=== PATIENT | female | born 1945 | race Caucasian/White ===

== ENCOUNTER → 2016-08-08 | Outpatient (CLI) | payer MEDICARE, OTHER ==
--- NOTE | 2016-08-08 13:26 | CT ---
EXAMINATION TYPE: CT sinus wo con DATE OF EXAM: 08/08/2016 12:17 PM COMPARISON: CT sinus without contrast HISTORY: Patient having headache in frontal sinus, behind eyes, and down around jaw CT DLP: 550.8 mGycm Automated exposure control for dose reduction was used. FINDINGS: Helical acquisition through the sinuses. Lobular soft tissue density present within the maxillary antrum on the left may represent mucus reten tion cyst or polyp. Minimal inflammatory change present within the ethmoid air cells. Sphenoid sinus also shows inflammatory change, minimal mucosal thickening present in the right maxillary sinus. The ostiomeatal units are patent. Rico cell suspected bilaterally, esther bullosa present on the right. The orbits show symmetric appearance. Mildly deviated nasal septum is present. IMPRESSION: FINDINGS COMPATIBLE WITH CHRONIC SINUSITIS, ADDITIONAL FINDINGS ABOVE
--- NOTE | 2016-08-08 13:30 | CT ---
EXAMINATION TYPE: CT brain wo con DATE OF EXAM: 08/08/2016 12:17 PM COMPARISON: CT sinus same date, previous head CT June HISTORY: Patient having headache in frontal sinus, behind eyes, and down around jaw CT DLP: 968.8 mGycm Automated exposure control for dose reduction was used. FINDINGS: There is abnormal asymmetric attenuation involving the left temporal lobe as compared to the right, t here may be some local edema present, difficult to exclude an underlying mass, overlying sulci are ef faced. There is no hemorrhage or hydrocephalus. Periventricular white matter low-attenuation likely d ue to chronic small vessel ischemia. There is age-related atrophy. Cerebral vascular calcifications a re present. Inflammatory change noted within the sinus. The orbits show symmetric appearance. There i s partial empty sella present. IMPRESSION: Recommend further evaluation for temporal lobe anomaly on the left, pre and postcontrast brain MRI mccormack ggested. A Yellow message has been communicated to eSth Solis DO via the [employer] system on 08/08/2016 1:26 PM, Message ID [id number].
== END | disposition home or self-care (01) ==
LOC: RADCTMAIN 11:48
PROVIDERS: ATTEND Family Medicine
DX: J32.9 Chronic sinusitis, unspecified (principal); R51 Headache
CPT/HCPCS: 70450; 70486

== ENCOUNTER 2016-08-12 11:04 | Inpatient (IN) | payer MEDICARE, OTHER ==
[2016-08-12] MEDS ORDERED: DEXAMETHASONE SOD PHOSPHATE 10 MG/ML 1 ML VIAL IV STA (11:33)
[2016-08-12 12:00] LABS: Basophils % (A) 0 %; CH 30.2; CHCM 32.4; Eosinophils # (A) 0.2 k/uL (0-0.7); Eosinophils % (A) 2 %; HCT 41.1 % (34.0-46.0); Luc # (Auto) 0.18; Luc % (Auto) 2; Lymphocytes % (A) 18 %; MCH 29.6 pg (25.0-35.0); MCHC 31.7 g/dL (31.0-37.0); MCV 93.4 fL (80.0-100.0); Mean Platelet Volume 7.5; Monocytes # (A) 0.5 k/uL (0-1.0); Monocytes % (A) 4 %; Neutrophils % (A) 73 %; RDW 14.6 % (11.5-15.5); WBC 10.9 k/uL (3.8-10.6); WBC (Perox) 10.65
[2016-08-12 12:07] LABS: INR 2.5 (<1.1); Prothrombin Time 24.4 sec (9.0-12.0)
[2016-08-12 12:16] LABS: C Reactive Protein 26.2 mg/L (<10.0); Calcium 10.2 mg/dL (8.4-10.2); Potassium 5.2 mmol/L (3.5-5.1)
[2016-08-12] MEDS ORDERED: AMPICILLIN-SULBACTAM 3 GM in SODIUM CHLORIDE 0.9% 100 ML IVPB STA (13:05)
--- NOTE | 2016-08-12 13:05 | ED ---
General Adult HPI - General Chief complaint: Neuro Symptoms/Deficit Stated complaint: facial numbness Time Seen by Provider: 08/12/16 11:19 Source: patient, family, RN notes reviewed, old records reviewed Mode of arrival: wheelchair Limitations: no limitations - History of Present Illness Initial comments: 71-year-old female with history of chronic sinus infection presenting for left facial pain and numbness. Patient states she's had symptoms going on for several weeks. She states she's been on several rounds of antibiotics which have mildly improved symptoms but symptoms persist. She states over the past week she's developed a numbness sensation on the left side of her face and into her left lips. She states a history of breast cancer which was treated with mastectomy on the right side back in March 2016. She did not require radiation or chemo. She denies any chest pain or shortness of breath. She denies any throat swelling. She denies any nausea or vomiting. She states she had a CT brain scan done a few days ago which showed an abnormality and was scheduled for follow-up MRI on 08/15/2016. - Related Data Home Medications Medication Instructions Recorded Confirmed Furosemide [Lasix] 40 mg PO DAILY PRN 09/06/13 08/12/16 Insulin Glargine [Lantus] 100 units SQ QAM 09/06/13 08/12/16 Ramipril 10 mg PO DAILY 09/06/13 08/12/16 Verapamil HCl [Verelan] 360 mg PO DAILY@1600 09/06/13 08/12/16 Multivitamins, Thera [Multivitamin 1 tab PO DAILY 05/02/14 08/12/16 (formulary)] Fenofibrate 160 mg PO DAILY@1600 03/01/16 08/12/16 Warfarin [Coumadin] 2.5 mg PO DAILY 03/26/16 08/12/16 Digoxin 250 mcg PO DAILY 04/02/16 08/12/16 Albuterol Nebulized [Ventolin 2.5 mg INHALATION RT-BID PRN 08/12/16 08/12/16 Nebulized] Insulin Detemir [Levemir] See Protocol SQ DAILY 08/12/16 08/12/16 Pseudoephedrine HCl [Sudafed] 60 mg PO Q4HR PRN 08/12/16 08/12/16 Allergies Allergy/AdvReac Type Severity Reaction Status Date / Time iodine Allergy Swelling Verified 08/12/16 12:26 shellfish derived Allergy Swelling Verified 08/12/16 12:26 TAPE AdvReac Itching Uncoded 08/12/16 12:26 Review of Systems ROS Statement: Those systems with pertinent positive or pertinent negative responses have been documented in the HPI. ROS Other: All systems not noted in ROS Statement are negative. Past Medical History Past Medical History: Atrial Fibrillation, Cancer, Heart Failure, COPD, Diabetes Mellitus, Hypertension, Osteoarthritis (OA), Sleep Apnea/CPAP/BIPAP Additional Past Medical History / Comment(s): ARTHRITIS PAIN KNEES & SHOULDERS. , SLEEP APNEA (DOES NOT USE C-PAP), DIVERTICULITIS., DENIES EDEMA AT THIS TIME. , NEW DIAGNOSIS OF BREAST CANCER., SINUS DRAINAGE. History of Any Multi-Drug Resistant Organisms: None Reported Past Surgical History: Breast Surgery, Section, Cholecystectomy Additional Past Surgical History / Comment(s): 04/02/16 Modified R breast radical mastectomy with sentinel lymph node bx. Other surgical hx: Cataract surgery, tubal ligation, colonoscopy , x3., Right Breast Bx. Past Anesthesia/Blood Transfusion Reactions: No Reported Reaction Past Psychological History: Anxiety, Depression Additional Psychological History / Comment(s): Pt has a tamika who resides with her. She gets around in a power chair. She does not drive, she takes the bus to [employer]. Smoking Status: Never smoker Past Alcohol Use History: None Reported Past Drug Use History: None Reported - Past Family History Mother Family Medical History: Congestive Heart Failure (CHF), Diabetes Mellitus Father Family Medical History: Vascular Disorder Additional Family Medical History / Comment(s): passed with aortic rupture at 73yrs old Sister(s) Family Medical History: Cancer Additional Family Medical History / Comment(s): SISTER AND SISTERS DAUGHTER- CANCER Brother(s) Family Medical History: Diabetes Mellitus Son(s) Family Medical History: No Reported History Daughter(s) Family Medical History: No Reported History General Exam - General Exam Comments Initial Comments: General: Awake and Alert. No acute distress. Does not appear acutely ill. Obese. Eyes: JULIA, EOM intact. No nystagmus. No scleral icterus. HENT: Atraumatic, normocephalic. Mucous membranes moist. Trachea midline. Neck: The neck is supple, there is no tenderness or JVD. Cardiovascular: Regular rate and rhythm. No murmur, rub, or gallop is appreciated. Distal pulses intact. Respiratory: Lungs are clear to auscultation bilaterally. No wheezes, rales, rhonchi. No respiratory distress. Gastrointestinal: Soft, Nontender. No rebound or guarding. Non-distended. No masses or organomegaly noted. No CVA tenderness. Musculoskeletal: No tenderness. Normal ROM. No gross deformity. No strength deficits. Neurological: A&Ox3. CN II-XII grossly intact, There are no obvious motor deficits. Subjective left facial sensory changes compared to right the V2 and V3 distribution. Coordination appears grossly intact. Speech is normal. Skin: Skin is warm and dry and no rashes or lesions are noted. Psychiatric: Cooperative, appropriate mood & affect, normal judgment. Limitations: no limitations Course Vital Signs 08/12/16 08/12/16 08/12/16 11:11 13:52 14:51 Temperature 97.7 F 97.6 F Pulse Rate 80 81 78 Respiratory 16 16 18 Rate Blood Pressure 133/72 114/60 121/68 O2 Sat by Pulse 95 95 95 Oximetry Medical Decision Making - Medical Decision Making 71-year-old female presenting for left sided facial numbness and pain. Recent CT Sinus imaging was reviewed with evidence of chronic sinusitis. Recent CT Brain with evidence of nonspecific left temporal changes concerning for possible mass with localized edema. Discussed these results with patient. Given the fact that there may be edema associated with this mass patient was given Decadron. Plan to start IV antibiotics for chronic sinus infection. Recommend patient be admitted for urgent MRI of her brain and Neurology evaluation. Consideration for CVT vs brain mass vs temporal arteritis. Lower suspicion of CVT given therapeutic anticoagulation. Pt declines pain medication , states she only takes tylenol for pain. Labs with mild leukocytosis. BMP with evidence of ROSETTE and borderline hyperkalemia, likely due to hypovolemia, IVF given. ESR and CRP elevated. INR therapeutic. I called and spoke with MRI, will be able to get patient in for MRI at 4:15 today. I spoke with Dr. Banegas, updated on patient situation. - Lab Data Result diagrams: 08/12/16 11:20 08/12/16 11:20 Lab Results 08/12/16 08/12/16 08/12/16 Range/Units 11:20 11:20 11:20 WBC 10.9 H (3.8-10.6) k/uL RBC 4.40 (3.80-5.40) m/uL Hgb 13.0 (11.4-16.0) gm/dL Hct 41.1 (34.0-46.0) % MCV 93.4 (80.0-100.0) fL MCH 29.6 (25.0-35.0) pg MCHC 31.7 (31.0-37.0) g/dL RDW 14.6 (11.5-15.5) % Plt Count 262 (150-450) k/uL Neutrophils % 73 % Lymphocytes % 18 % Monocytes % 4 % Eosinophils % 2 % Basophils % 0 % Neutrophils # 8.0 H (1.3-7.7) k/uL Lymphocytes # 2.0 (1.0-4.8) k/uL Monocytes # 0.5 (0-1.0) k/uL Eosinophils # 0.2 (0-0.7) k/uL Basophils # 0.0 (0-0.2) k/uL ESR 33 H (0-20) mm/hr PT 24.4 H (9.0-12.0) sec INR 2.5 (<1.1) Sodium 141 (137-145) mmol/L Potassium 5.2 H (3.5-5.1) mmol/L Chloride 105 (98-107) mmol/L Carbon Dioxide 25 (22-30) mmol/L Anion Gap 11 mmol/L BUN 41 H (7-17) mg/dL Creatinine 1.20 H (0.52-1.04) mg/dL Est GFR (MDRD) Af Amer 53 (>60 ml/min/1.73 sqM) Est GFR (MDRD) Non-Af 44 (>60 ml/min/1.73 sqM) Glucose 141 H (74-99) mg/dL Calcium 10.2 (8.4-10.2) mg/dL C-Reactive Protein 26.2 H (<10.0) mg/L - Radiology Data Radiology results: report reviewed Disposition Clinical Impression: Sinusitis, Facial paresthesia, Abnormal CT of the head, Diabetes, Afib, ROSETTE ( acute kidney injury), Anticoagulated on Coumadin Disposition: ADMITTED IP TO THIS [facility] Condition: Stable Decision to Admit Reason: Admit from [facility]
[2016-08-12 13:11] LABS: Erythrocyte Sedimentation Rate 33 mm/hr (0-20)
[2016-08-12] MEDS ORDERED: NALOXONE 0.4 MG/ML 1 ML VIAL IV PRN (13:56)
[2016-08-12] MEDS ORDERED: ACETAMINOPHEN TAB 325 MG TAB PO PRN (13:56)
[2016-08-12] MEDS ORDERED: ONDANSETRON 4 MG/2 ML VIAL IVP PRN (13:56)
[2016-08-12] MEDS ORDERED: SODIUM CHLORIDE 0.9% 500 ML IV STA (14:05)
[2016-08-12 17:40] LABS: Glucose,Whole Blood 185 mg/dL (75-99)
[2016-08-12] MEDS ORDERED: FUROSEMIDE 40 MG TAB PO PRN (17:40)
[2016-08-12] MEDS ORDERED: ALBUTEROL NEBULIZED 2.5 MG/3 ML INHALATION PRN (17:40)
[2016-08-12] MEDS ORDERED: PSEUDOEPHEDRINE 30 MG TAB PO PRN (17:40)
--- NOTE | 2016-08-12 17:54 | P.HPIM ---
History of Present Illness H&P Date: 08/12/16 Chief Complaint: Left sided facial numbness with numbness of the lip and cerebral 71-year-old morbidly obese female one of Dr. 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 Patient apparently developed to have sinusitis over 3 months ago was treated with several courses of oral antibiotics but continued to have complaint of numbness not feeling well a pressure discomfort and facial area mostly in the left side. Patient was referred for CAT scan of the sinus and the brain back in August 08 finding surprisingly came back with slight Scurry of the left temporal area consistent with mild cerebral edema of any clear etiology with no finding of spot of metastasis. Patient was referred to demurs department by Dr. Solis 1 calling him today and complaining about the numbness in her face and lip area. Patient was seen and evaluated no other neuro finding or deficit was found with her current complaint patient was giving Decadron will be admitted to the hospital will consult neurology and make an arrangement for an MRI of the brain with gallium. Review of Systems Constitutional: Reports fatigue, Reports fever, Reports lethargy, Reports weakness, Reports weight gain, Denies as per HPI, Denies anorexia, Denies chills , Denies chronic headaches, Denies chronic pain, Denies daytime sleepiness, Denies malaise, Denies night sweats, Denies poor appetite, Denies sweats, Denies weight loss Eyes: bilateral as per HPI Ears: bilateral: decreased hearing Ears, nose, mouth and throat: Reports ant. neck pain, Reports dental pain, Reports nasal congestion, Reports nasal discharge, Reports nose pain, Reports sinus pain, Reports sinus pressure, Reports swelling in mouth, Reports swelling in throat, Reports sore throat, Denies as per HPI, Denies bleeding gums, Denies dysphagia, Denies epistaxis, Denies headache, Denies hoarseness, Denies mouth pain, Denies neck fullness/pressure, Denies neck lump, Denies odynophagia, Denies post-nasal drip, Denies vertigo, Denies voice changes Cardiovascular: Reports decreased exercise tolerance, Reports edema, Reports high blood pressure, Reports irregular heart beat, Reports leg edema, Reports rapid heart beat, Denies as per HPI, Denies chest pain, Denies claudication, Denies dyspnea on exertion, Denies lightheadedness, Denies orthopnea, Denies palpitations, Denies paroxysmal nocturnal dyspnea, Denies phlebitis, Denies shortness of breath, Denies syncope Respiratory: Reports congestion, Reports cough, Reports dyspnea, Reports home oxygen, Reports pain, Reports wheezing, Denies as per HPI, Denies cough with sputum, Denies excessive sputum, Denies hemoptysis, Denies pain on inspiration, Denies pleurisy, Denies respiratory infections, Denies sleep apnea, Denies snoring Gastrointestinal: Reports bloating, Reports dyspepsia, Reports excessive gas, Reports indigestion, Reports nausea, Denies as per HPI, Denies abdominal pain, Denies belching, Denies BRBPR, Denies change in bowel habits, Denies coffee ground emesis, Denies constipation, Denies diarrhea, Denies early satiety, Denies heartburn, Denies hematemesis, Denies hematochezia, Denies jaundice, Denies lactose intolerance, Denies loss of appetite, Denies melena, Denies vomiting Genitourinary: Reports urge incontinence, Denies as per HPI, Denies abnormal vaginal bleeding, Denies decreased libido, Denies difficulty conceiving, Denies difficulty voiding, Denies dysmenorrhea, Denies dyspareunia, Denies dysuria, Denies flank pain, Denies genital sores, Denies hematuria, Denies hot flashes, Denies incomplete emptying, Denies kidney stones, Denies menorrhagia, Denies mixed incontinence, Denies nocturia, Denies pelvic pain, Denies post void dribbling, Denies , Denies prolapse symptoms, Denies stress incontinence , Denies urgency, Denies urinary frequency, Denies vaginal discharge, Denies vaginal dryness, Denies vaginal itching, Denies vaginal odor Musculoskeletal: Reports loss of height, Reports low back pain, Reports myalgias , Reports neck pain, Reports neck stiffness, Denies as per HPI, Denies arm numbness/tingling, Denies atrophy, Denies fractures, Denies frequent falls, Denies gait dysfunction, Denies hot joints, Denies leg numbness/tingling, Denies limitation of motion, Denies morning stiffness, Denies muscle cramps, Denies muscle weakness, Denies prior amputations, Denies redness of joints, Denies shooting arm pain, Denies shooting leg pain Musculoskeletal: bilateral: ankle pain Integumentary: Reports rash, Reports sores, Denies as per HPI, Denies acne, Denies boils, Denies brittle nails, Denies change in hair/nails, Denies color changes, Denies darkening of skin, Denies depigmentation, Denies dryness, Denies foot/leg ulcers, Denies growths, Denies hirsutism, Denies lesions, Denies onychomycosis, Denies pruritus, Denies striae, Denies unusual bruising, Denies wounds Neurological: Reports ataxia, Reports burning pain, Reports change in speech, Reports confusion, Reports double vision, Reports gait dysfunction, Reports memory loss, Reports spasticity, Reports tingling, Reports weakness, Denies as per HPI, Denies balance difficulties, Denies change in mentation, Denies change in smell/taste, Denies convulsions, Denies head injury, Denies headaches, Denies hearing difficulties, Denies lack of coordination, Denies loss of vision , Denies migraines, Denies motor disturbance, Denies numbness, Denies paralysis , Denies paresthesias, Denies seizures, Denies sensory deficit, Denies syncope, Denies tic, Denies transient paralysis, Denies tremors, Denies vertigo, Denies visual changes Psychiatric: Reports anhedonia, Reports anxiety, Reports anxiety attacks, Reports depression, Reports difficulty concentrating, Reports memory loss, Reports mood swings, Denies as per HPI, Denies change in appetite, Denies change in libido, Denies change in sleep habits, Denies confusion, Denies disorientation, Denies hallucinations, Denies hopelessness, Denies hypersomnia, Denies insomnia, Denies irritability, Denies paranoia, Denies sadness/ tearfulness, Denies sleep disturbances, Denies suicidal ideation Endocrine: Reports cold intolerance, Reports deepening of the voice, Reports excessive thirst, Reports fatigue, Denies as per HPI, Denies excessive sweating , Denies flushing, Denies heat intolerance, Denies high blood sugars, Denies increase in ring/shoe/hat size, Denies low blood sugars, Denies nocturia, Denies palpitations, Denies polydipsia, Denies polyphagia, Denies polyuria, Denies proptosis, Denies recent glucocorticoid use, Denies thyroid mass, Denies weight change Hematologic/Lymphatic: Reports easy bruising, Denies as per HPI, Denies easy bleeding, Denies lymphadenopathy, Denies lymphedema, Denies thrombophilia Allergic/Immunologic: Reports allergic rhinitis, Denies as per HPI, Denies anaphylaxis, Denies angioedema, Denies gluten intolerance, Denies persistent infections, Denies seasonal allergies, Denies urticaria, Denies wheezing Past Medical History Past Medical History: Atrial Fibrillation, Cancer, Heart Failure, COPD, Diabetes Mellitus, Hypertension, Osteoarthritis (OA), Sleep Apnea/CPAP/BIPAP Additional Past Medical History / Comment(s): ARTHRITIS PAIN KNEES & SHOULDERS. , SLEEP APNEA (DOES NOT USE C-PAP), DIVERTICULITIS., DENIES EDEMA AT THIS TIME. , NEW DIAGNOSIS OF BREAST CANCER., SINUS DRAINAGE. History of Any Multi-Drug Resistant Organisms: None Reported Past Surgical History: Breast Surgery, Section, Cholecystectomy Additional Past Surgical History / Comment(s): 04/02/16 Modified R breast radical mastectomy with sentinel lymph node bx. Other surgical hx: Cataract surgery, tubal ligation, colonoscopy , x3., Right Breast Bx. Past Anesthesia/Blood Transfusion Reactions: No Reported Reaction Past Psychological History: Anxiety, Depression Additional Psychological History / Comment(s): Pt has a tamika who resides with her. She gets around in a power chair. She does not drive, she takes the bus to [employer]. Smoking Status: Never smoker Past Alcohol Use History: None Reported Past Drug Use History: None Reported - Past Family History Mother Family Medical History: Congestive Heart Failure (CHF), Diabetes Mellitus Father Family Medical History: Vascular Disorder Additional Family Medical History / Comment(s): passed with aortic rupture at 73yrs old Sister(s) Family Medical History: Cancer Additional Family Medical History / Comment(s): SISTER AND SISTERS DAUGHTER- CANCER Brother(s) Family Medical History: Diabetes Mellitus Son(s) Family Medical History: No Reported History Daughter(s) Family Medical History: No Reported History Medications and Allergies Home Medications Medication Instructions Recorded Confirmed Type Furosemide [Lasix] 40 mg PO DAILY PRN 09/06/13 08/12/16 History Insulin Glargine [Lantus] 100 units SQ QAM 09/06/13 08/12/16 History Ramipril 10 mg PO DAILY 09/06/13 08/12/16 History Verapamil HCl [Verelan] 360 mg PO DAILY@1600 09/06/13 08/12/16 History Multivitamins, Thera [Multivitamin 1 tab PO DAILY 05/02/14 08/12/16 History (formulary)] Fenofibrate 160 mg PO DAILY@1600 03/01/16 08/12/16 History Warfarin [Coumadin] 2.5 mg PO DAILY 03/26/16 08/12/16 History Digoxin 250 mcg PO DAILY 04/02/16 08/12/16 History Albuterol Nebulized [Ventolin 2.5 mg INHALATION RT-BID PRN 08/12/16 08/12/16 History Nebulized] Insulin Detemir [Levemir] See Protocol SQ DAILY 08/12/16 08/12/16 History Pseudoephedrine HCl [Sudafed] 60 mg PO Q4HR PRN 08/12/16 08/12/16 History Allergies Allergy/AdvReac Type Severity Reaction Status Date / Time iodine Allergy Swelling Verified 08/12/16 12:26 shellfish derived Allergy Swelling Verified 08/12/16 12:26 TAPE AdvReac Itching Uncoded 08/12/16 12:26 Physical Exam Vitals: Vital Signs Temp Pulse Pulse Resp BP BP Pulse Ox 08/12/16 15:34 97.4 F L 83 16 128/77 93 L 08/12/16 14:51 97.6 F 78 18 121/68 95 - Constitutional General appearance: no average body habitus, cooperative, no disheveled, no mild distress, morbidly obese, no acute distress, no obese, no severe distress, no thin - EENT Eyes: abnormal pupil, no anicteric sclerae, no disc margins sharp, no edentulous , no EOMI, no PERRLA, no fundus normal, no photophobia, no dentition normal, no poor dentition, no ptosis, no scleral icterus, normal appearance ENT: no hard of hearing, no hearing grossly normal, no NA/AT, normal oropharynx , no other, pharyngeal erythema, no thrush, no tonsillar exudates, no tonsillar swelling Ears: bilateral: normal, bulging - Neck Neck: no lymphadenopathy, normal ROM, no other, no rigidity, no stridor, no thyromegaly Carotids: bilateral: upstroke normal, upstroke delayed Thyroid: bilateral: normal size, enlarged - Respiratory Respiratory: right: rales, bilateral: diminished, dullness - Cardiovascular Rhythm: regular Heart sounds: normal: S1, S2 Abnormal Heart Sounds: systolic murmur, S3 Gallop - Gastrointestinal General gastrointestinal: no absent bowel sounds, decreased bowel sounds, no distended, no hepatomegaly, no hyperactive bowel sounds, no normal bowel sounds , no organomegaly, no rigid, no scaphoid, soft, no splenomegaly, no tenderness, no umbilical hernia, no ventral hernia - Integumentary Integumentary: no calor, no cellulitis, no cyanotic, no decreased turgor, no flushed, no jaundiced, no normal, no normal turgor, pale, rash, no ulcer - Neurologic Patient is alert and oriented 3, and nerve to 12 intact slight numbness in the left side of her cheek area and the nose along with her upper lip only. Strength and motor function are equally normal in both side no abnormal gait or balance. Neurologic: CNII-XII intact - Musculoskeletal Musculoskeletal: gait normal, generalized weakness, strength equal bilaterally, no right sided weakness, no left sided weakness - Psychiatric Psychiatric: A&O x's 3, appropriate affect, no intact judgment & insight Results CBC & Chem 7: 08/12/16 11:20 08/12/16 11:20 Labs: Abnormal Lab Results - Last 24 Hours (Table) 08/12/16 Range/Units 17:24 POC Glucose (mg/dL) 185 H (75-99) mg/dL Thrombosis Risk Factor Assmnt - DVT/VTE Prophylaxis DVT/VTE Prophylaxis: Pharmacologic Prophylaxis ordered, Mechanical Prophylaxis ordered Assessment and Plan Plan: 1 possible CVA/TIA: With patient's current symptoms patient be hospitalized consult neurology CAT scan of the brain was performed if possible MRI of the brain will be order further testing based on neurology recommendation. 2 possible metastasis to the left temporal area with vague finding on the CAT scan along with mild cerebral edema: Patient was started on Decadron we'll consult neurology and refer for MRI of the brain at this point. 3 chronic sinusitis with abnormal finding on a CAT scan of the sinus: Patient be referred to ENT if finding of the MRI of the brain does not reflect any cerebral edema patient entire finding most likely consistent with a chronic sinusitis has not improved with medical management might require surgery. 4 breast-cancer: Post modified right-sided mastectomy has been seen oncology. 5 diabetes: Patient will be continue on insulin along with sliding scales coverage. 6 hypertension: Has been on all paced 10 mg daily. 7 A. fib with well controlled pulse rate: Patient is still on warfarin, and digoxin PT/INR be done daily. 8 hyperlipidemia: Continue patient on fenofibrate for now. 9 COPD: Continue updraft treatment and if needed oxygen to keep her pulse ox above 90%. 10 GI prophylaxis: Patient will be on Pepcid 20 mg daily. 11 DVT prophylaxis: Remain on anticoagulation with therapeutic INR. CODE STATUS: Full code. Expectation from's admission: Patient in the hospital for 1-2 nights.
[2016-08-12 18:32] VITALS: BMI 55.4
[2016-08-12] MEDS: SODIUM CHLORIDE 0.9% 1,000 ML IV SCH (18:37)
[2016-08-12] MEDS: WARFARIN 2.5 MG TAB PO SCH (20:10)
--- NOTE | 2016-08-12 20:24 | CONS ---
DATE OF CONSULTATION: 08/12/2016 CHIEF COMPLAINT: Facial numbness. HISTORY OF PRESENT ILLNESS: Mrs. Nunn is a pleasant 71-year-old female who is being evaluated by the neurology service per the request of Dr. Banegas for left facial numbness. The patient states that she has been having sinus issues for the past several weeks. She treats with Dr. Solis and she has been placed on antibiotics for a prolonged period of time. She was having fullness in her left ear and pressure-type pain in the left temporal and maxillary and frontal regions. When her symptoms did not improve, a CT scan of the brain and sinuses was done. I did review her CT scan of the brain which was done on 08/08/16. It showed an abnormal asymmetric attenuation in the left temporal lobe. There was also a finding consistent with edema. The study was done without contrast. There was also periventricular white matter hypoattenuation consistent with chronic small vessel ischemic changes. The patient was contacted by Dr. Solis's office and told to go to the emergency room. The patient was started on Decadron and admitted for further workup and management. The patient does have history of breast cancer and had a mastectomy done. She states that her lymph node biopsy was negative. She does treat with Dr. Wilson for this. At the time of my evaluation, the patient is sitting at the edge of her bed and appears to be in no acute distress. She continues to complain of numbness and tingling involving her left, mostly in the perioral region. She denies any extremity numbness or weakness and denies any speech difficulties. I did review her laboratory workup, and her CBC was normal except for mild leukocytosis at 10.9. Her basic metabolic profile showed mild renal insufficiency with a BUN of 41 and creatinine of 1.2. She did have mild hyperkalemia at 5.2 and hyperglycemia at 185. Her CRP was slightly elevated at 26.2. PAST MEDICAL HISTORY: 1. Breast cancer. 2. Atrial fibrillation. 3. Chronic obstructive pulmonary disease. 4. Heart failure. 5. Diabetes. 6. Hypertension. 7. Arthritis. 8. Obstructive sleep apnea. 9. Diverticulitis. 10. History of mastectomy. 11. . 12. Cholecystectomy. 13. She also reports a history of depression and anxiety disorder. 14. The patient also reports a history of tubal ligation and cataract surgery and lymph node biopsy. SOCIAL HISTORY: She denies any tobacco, alcohol or drug use. FAMILY HISTORY: Positive for diabetes and heart failure and cancer. HOME MEDICATIONS: Reviewed in the chart. ALLERGIES: 1. IODINE. 2. TAPE. 3. SHELLFISH. REVIEW OF SYSTEMS: CONSTITUTIONAL: Positive for fatigue. EYES: Negative. ENT: As mentioned above. CARDIOVASCULAR: Positive for history of atrial fibrillation and congestive heart failure. RESPIRATORY: ( ). NEUROLOGICAL: As mentioned above. GASTROINTESTINAL: Positive for occasional heartburn. GENITOURINARY: Negative. PSYCHIATRIC: Positive for history of depression and anxiety disorder. DERMATOLOGICAL: Negative. ENDOCRINE: Positive for diabetes. MUSCULOSKELETAL: Positive for frequent joint pain. PHYSICAL EXAM: Vital signs show a temperature of 97.4, pulse 83, respiration 16, blood pressure 128/77. GENERAL APPEARANCE: The patient is a morbidly obese female who appears to be in no acute distress. HEENT: Normocephalic, atraumatic. No facial asymmetry is seen. Extraocular muscles are intact. Neck is supple with lymphadenopathy noticed on the left side. CARDIOVASCULAR: Regular rate and rhythm. ABDOMEN: Obese, nontender, nondistended. Extremities showed edema with no clubbing seen. NEUROLOGICAL EXAM: The patient is alert, aware and oriented x3. Speech and language are normal. Strength is full in all 4 extremities. Sensory exam was normal to light touch in all 4 extremities. No pronator drift is seen. No tremors are noticed. No facial asymmetry is noticed on cranial nerve testing, but she does have mild sensory deficit in the left perioral region. IMPRESSION: 1. Abnormal attentuation involving the left temporal lobe; questionable neoplastic etiology. 2. Left facial numbness. 3. History of breast cancer. 4. Renal insufficiency. 5. Diabetes. RECOMMENDATION: The patient's CT scan of the brain without contrast is concerning for neoplastic etiology. An MRI of the brain was attempted today, but this could not be completed due to the patient's body habitus. The patient will need an MRI of the brain, and I do recommend transferring the patient to a facility that has an open MRI. I will consult Oncology. The patient has been started on Decadron. Continue neuro checks. Prognosis is guarded. I will continue to follow with you. Further recommendations to follow. Thank you for allowing me to participate in the care of your patient. If you have any questions, please feel free to contact me.
[2016-08-12 21:41] LABS: Glucose,Whole Blood 247 mg/dL (75-99)
[2016-08-12] MEDS: INSULIN LISPRO (humaLOG) 300 UNIT/3 ML VIAL SQ SCH (21:46)
[2016-08-12 23:53] LABS: Hemoglobin A1C 6.6 % (4.2-6.1)
[2016-08-13 07:01] LABS: Glucose,Whole Blood 136 mg/dL (75-99)
[2016-08-13 08:37] LABS: Basophils % (A) 0 %; CH 30.4; CHCM 32.9; Eosinophils % (A) 0 %; HCT 39.8 % (34.0-46.0); HDW 2.58; Luc # (Auto) 0.12; Luc % (Auto) 1; Lymphocytes # (A) 1.7 k/uL (1.0-4.8); Lymphocytes % (A) 17 %; MCH 30.3 pg (25.0-35.0); MCHC 32.7 g/dL (31.0-37.0); MCV 92.7 fL (80.0-100.0); Mean Platelet Volume 7.3; Monocytes # (A) 0.4 k/uL (0-1.0); Monocytes % (A) 4 %; Neutrophils # (A) 7.7 k/uL (1.3-7.7); Neutrophils % (A) 77 %; RBC 4.29 m/uL (3.80-5.40); RDW 14.3 % (11.5-15.5); WBC 10.1 k/uL (3.8-10.6); WBC (Perox) 9.54
[2016-08-13] MEDS: INSULIN GLARGINE 100 UNIT/ML 10 ML VIAL SQ SCH (08:44)
[2016-08-13] MEDS: LISINOPRIL 20 MG TAB PO SCH (08:44)
[2016-08-13] MEDS: FAMOTIDINE 20 MG TAB PO SCH (08:45)
[2016-08-13] MEDS: DIGOXIN 250 MCG TAB PO SCH (08:45)
[2016-08-13] MEDS: INSULIN LISPRO (humaLOG) 300 UNIT/3 ML VIAL SQ SCH ×4 (08:48→23:05)
[2016-08-13 08:49] LABS: INR 2.4 (<1.1); Prothrombin Time 23.4 sec (9.0-12.0)
[2016-08-13 09:47] LABS: Calcium 10.4 mg/dL (8.4-10.2); Potassium 5.2 mmol/L (3.5-5.1)
[2016-08-13 11:27] LABS: Glucose,Whole Blood 150 mg/dL (75-99)
[2016-08-13] MEDS: MULTIVITAMINS, THERA 1 EACH TAB PO SCH (11:28)
[2016-08-13] MEDS ORDERED: VERAPAMIL SR 180 MG TABLET.ER PO SCH (16:00)
[2016-08-13] MEDS ORDERED: FENOFIBRATE 160 MG TAB PO SCH (16:00)
--- NOTE | 2016-08-13 17:02 | P.PN ---
Subjective Principal diagnosis: Facial numbness This is a pleasant 71-year-old male continuing to be evaluated by the neurology service for facial numbness. Been having sinus issues for several weeks and was placed on antibiotics for a prolonged period of time. She was also having fullness in her left ear and pressure/pain in the left temporal maxillary and frontal regions. A CT of the brain and sinuses showed an abnormal asymmetric attenuation of the left temporal lobe. There was also some associated edema. She does have a history of breast cancer with mastectomy. We have ordered an MRI with and without contrast to rule out a mass/metastatic lesions. Due to body habitus she will require open MRI. He denies any new symptoms since our last neurological exam. Symptoms are unchanged on Decadron Objective - Vital Signs Vital signs: Vital Signs Temp 97.7 F 08/13/16 15:00 Pulse 71 08/13/16 16:00 Resp 16 08/13/16 16:00 BP 111/55 08/13/16 15:00 Pulse Ox 95 08/13/16 15:00 Intake & Output 08/12/16 08/13/16 08/13/16 18:59 06:59 18:59 Intake Total 1180 160 Balance 1180 160 Weight 141.974 kg 138.5 kg 138.5 kg Intake: Intake, IV Titration 160 Amount Sodium Chloride 0.9% 1, 160 000 ml @ 20 mls/hr IV . Q24H [facility] Rx#:[id number] Oral 1180 Other: Voiding Method Bedside Commode Bedside Commode # Voids 2 2 - Constitutional General appearance: Present: mild distress, obese - EENT Eyes: Present: EOMI, PERRLA. Absent: abnormal pupil, ptosis ENT: Present: hearing grossly normal - Neck Neck: Present: normal ROM. Absent: rigidity - Respiratory Respiratory: negative: prolonged expiration, prolonged inspiration - Cardiovascular Rhythm: regular - Gastrointestinal General gastrointestinal: Present: soft. Absent: tenderness - Neurologic Neurologic Comment(s): Alert awake and oriented 3. Speech and language are normal. There is no facial asymmetry. There is no lateralizing weakness. There is no decreased sensation in any extremity. There is no tremors or seizure-like activity seen. Continues to have a mild perioral left sensory deficit. - Labs CBC & Chem 7: 08/13/16 07:56 08/13/16 07:56 Labs: Abnormal Lab Results - Last 24 Hours (Table) 08/12/16 08/12/16 08/13/16 Range/Units 17:24 21:40 06:53 PT (9.0-12.0) sec Potassium (3.5-5.1) mmol/L BUN (7-17) mg/dL Creatinine (0.52-1.04) mg/dL Glucose (74-99) mg/dL POC Glucose (mg/dL) 185 H 247 H 136 H (75-99) mg/dL Calcium (8.4-10.2) mg/dL 08/13/16 08/13/16 08/13/16 Range/Units 07:56 07:56 11:20 PT 23.4 H (9.0-12.0) sec Potassium 5.2 H (3.5-5.1) mmol/L BUN 41 H (7-17) mg/dL Creatinine 1.11 H (0.52-1.04) mg/dL Glucose 145 H (74-99) mg/dL POC Glucose (mg/dL) 150 H (75-99) mg/dL Calcium 10.4 H (8.4-10.2) mg/dL Assessment and Plan (1) Abnormal CT of brain Status: Acute (2) Left facial numbness Status: Acute (3) History of breast cancer Status: Chronic (4) Sinusitis Status: Chronic (5) Diabetes Status: Chronic Plan: Again her computed tomography scan was concerning for neoplastic etiology. An MRI of the brain has been ordered an open facility. This apparently will be done in outpatient setting. Oncology will continue to follow. Continue on Decadron until she is discharged. Prognosis remains guarded until characterization of this abnormal finding can be made. Otherwise she is cleared from a neurological standpoint to have her MRI done and follow-up with oncology and her primary care physician. I have performed a history and physical on the above patient. I have reviewed the above note, and agree.
[2016-08-13 17:04] LABS: Glucose,Whole Blood 137 mg/dL (75-99)
--- NOTE | 2016-08-13 18:21 | P.CONS ---
History of Present Illness - Reason for Consult Consult date: 08/13/16 breast cancer Requesting physician: Robert Maria - Chief Complaint facial numbness - History of Present Illness Ms. Nunn is a very pleasant female pt who saw Dr. Wilson as a new consult 04/16/16. Pt presented with palpable right breast in January 2016, she had mammography and right breast U/S which revealed 3.5cm suspicious mass at 5 o 'clock right breast, core biopsy positive for high grade carcinoma, triple negative, biopsy of right axillary node was negative. On 04/02/2016 she underwent right breast mastectomy and with axillary node resection, path revealed grade 3, invasive ductal carcinoma, 3.4cm, with 8/8 nodes negative, triple negative status. Her sister was positive for BRCA-1 mutation and so was she when tested. She was due to see Dr. Wilson today for follow up as she decided in Apr to opt for observation only. Pt came to the hospital due to left facial numbness and left frontal head pain, she has been treated for otitis media and sinus infection with only minor improvements in her symptoms, she denies fevers, double or blurred vision, unilateral deficits, confusion, hallucinations, nausea or vomiting. She had CT that showed left frontal swelling, she has seen Neurology and has been started on steroids. Review of Systems All systems: negative Constitutional: Reports as per HPI Past Medical History Past Medical History: Atrial Fibrillation, Cancer, Heart Failure, COPD, Diabetes Mellitus, Hypertension, Osteoarthritis (OA), Sleep Apnea/CPAP/BIPAP Additional Past Medical History / Comment(s): ARTHRITIS PAIN KNEES & SHOULDERS. , SLEEP APNEA (DOES NOT USE C-PAP), DIVERTICULITIS., DENIES EDEMA AT THIS TIME. , NEW DIAGNOSIS OF BREAST CANCER., SINUS DRAINAGE. History of Any Multi-Drug Resistant Organisms: None Reported Past Surgical History: Breast Surgery, Section, Cholecystectomy Additional Past Surgical History / Comment(s): 04/02/16 Modified R breast radical mastectomy with sentinel lymph node bx. Other surgical hx: Cataract surgery, tubal ligation, colonoscopy , x3., Right Breast Bx. Past Anesthesia/Blood Transfusion Reactions: No Reported Reaction Past Psychological History: Anxiety, Depression Additional Psychological History / Comment(s): Pt has a tamika who resides with her. She gets around in a power chair. She does not drive, she takes the bus to [employer]. Smoking Status: Never smoker Past Alcohol Use History: None Reported Past Drug Use History: None Reported - Past Family History Mother Family Medical History: Congestive Heart Failure (CHF), Diabetes Mellitus Father Family Medical History: Vascular Disorder Additional Family Medical History / Comment(s): passed with aortic rupture at 73yrs old Sister(s) Family Medical History: Cancer Additional Family Medical History / Comment(s): SISTER AND SISTERS DAUGHTER- CANCER Brother(s) Family Medical History: Diabetes Mellitus Son(s) Family Medical History: No Reported History Daughter(s) Family Medical History: No Reported History Medications and Allergies Home Medications Medication Instructions Recorded Confirmed Type Furosemide [Lasix] 40 mg PO DAILY PRN 09/06/13 08/12/16 History Insulin Glargine [Lantus] 100 units SQ QAM 09/06/13 08/12/16 History Ramipril 10 mg PO DAILY 09/06/13 08/12/16 History Verapamil HCl [Verelan] 360 mg PO DAILY@1600 09/06/13 08/12/16 History Multivitamins, Thera [Multivitamin 1 tab PO DAILY 05/02/14 08/12/16 History (formulary)] Fenofibrate 160 mg PO DAILY@1600 03/01/16 08/12/16 History Warfarin [Coumadin] 2.5 mg PO DAILY 03/26/16 08/12/16 History Digoxin 250 mcg PO DAILY 04/02/16 08/12/16 History Albuterol Nebulized [Ventolin 2.5 mg INHALATION RT-BID PRN 08/12/16 08/12/16 History Nebulized] Insulin Detemir [Levemir] See Protocol SQ DAILY 08/12/16 08/12/16 History Pseudoephedrine HCl [Sudafed] 60 mg PO Q4HR PRN 08/12/16 08/12/16 History Allergies Allergy/AdvReac Type Severity Reaction Status Date / Time iodine Allergy Swelling Verified 08/12/16 12:26 shellfish derived Allergy Swelling Verified 08/12/16 12:26 TAPE AdvReac Itching Uncoded 08/12/16 12:26 Physical Exam Vitals: Vital Signs Temp Pulse Resp BP Pulse Ox 08/13/16 16:00 71 16 08/13/16 15:00 97.7 F 71 16 111/55 95 08/13/16 08:00 61 16 08/13/16 07:00 97.7 F 61 16 147/74 92 L 08/12/16 23:00 98.5 F 66 16 119/63 95 Intake and Output 08/13/16 08/13/16 08/13/16 06:59 14:59 22:59 Intake Total 590 160 Balance 590 160 Intake: Intake, IV Titration 160 Amount Sodium Chloride 0.9% 1, 160 000 ml @ 20 mls/hr IV . Q24H [facility] Rx#:[id number] Oral 590 Other: Voiding Method Bedside Commode Bedside Commode Bedside Commode # Voids 2 2 Weight 138.5 kg 138.5 kg 138.5 kg Patient Weight 08/14/16 06:59 Weight 138.5 kg - Constitutional General appearance: cooperative, morbidly obese, no acute distress - EENT Eyes: anicteric sclerae, EOMI, normal appearance ENT: hearing grossly normal, normal oropharynx - Neck Neck: no lymphadenopathy - Respiratory Respiratory: bilateral: CTA - Cardiovascular Heart sounds: normal: S1, S2 leg Peripheral Edema: bilateral: None - Gastrointestinal General gastrointestinal: no absent bowel sounds, no decreased bowel sounds, no distended, no hepatomegaly, no hyperactive bowel sounds, normal bowel sounds, no organomegaly, no rigid, no scaphoid, soft, no splenomegaly, no tenderness, no umbilical hernia, no ventral hernia - Neurologic Neurologic: CNII-XII intact - Musculoskeletal Musculoskeletal: generalized weakness, strength equal bilaterally - Psychiatric Psychiatric: A&O x's 3, appropriate affect, intact judgment & insight Results CBC & Chem 7: 08/13/16 07:56 08/13/16 07:56 Labs: Abnormal Lab Results - Last 24 Hours (Table) 08/12/16 08/13/16 08/13/16 Range/Units 21:40 06:53 07:56 PT 23.4 H (9.0-12.0) sec Potassium (3.5-5.1) mmol/L BUN (7-17) mg/dL Creatinine (0.52-1.04) mg/dL Glucose (74-99) mg/dL POC Glucose (mg/dL) 247 H 136 H (75-99) mg/dL Calcium (8.4-10.2) mg/dL 08/13/16 08/13/16 08/13/16 Range/Units 07:56 11:20 16:52 PT (9.0-12.0) sec Potassium 5.2 H (3.5-5.1) mmol/L BUN 41 H (7-17) mg/dL Creatinine 1.11 H (0.52-1.04) mg/dL Glucose 145 H (74-99) mg/dL POC Glucose (mg/dL) 150 H 137 H (75-99) mg/dL Calcium 10.4 H (8.4-10.2) mg/dL CT Scan - head: report reviewed Assessment and Plan (1) History of breast cancer Narrative/Plan: Pt was treated with surgery and has been on follow up, due to see Dr. Wilson today. Agree with Neurology recommendation of open MRI to evaluate CT findings. Pt symptoms have not improved much despite the addition of steroids but, will continue steroids until MRI is done. Pt appears to be hemodynamically stable and can be discharged for MRI if she is evaluated and cleared by Attending and Neurology. Will plan for f/u with Dr. Wilson 1-2 days post MRI for results and plan of care. Status: Chronic
[2016-08-13] MEDS: WARFARIN 2.5 MG TAB PO SCH (18:48)
[2016-08-13] MEDS: DEXAMETHASONE 4 MG TAB PO SCH ×2 (18:50→23:04)
[2016-08-13] MEDS: SODIUM CHLORIDE 0.9% 1,000 ML IV SCH (18:51)
[2016-08-13 20:21] LABS: Glucose,Whole Blood 193 mg/dL (75-99)
[2016-08-14 07:38] LABS: Glucose,Whole Blood 178 mg/dL (75-99)
[2016-08-14 08:31] VITALS: BP 120/67; PULSE 61; RESP 18; TEMP 97.3
[2016-08-14] MEDS: INSULIN GLARGINE 100 UNIT/ML 10 ML VIAL SQ SCH (08:41)
[2016-08-14] MEDS: LISINOPRIL 20 MG TAB PO SCH (08:41)
[2016-08-14] MEDS: DEXAMETHASONE 4 MG TAB PO SCH (08:41)
[2016-08-14] MEDS: DIGOXIN 250 MCG TAB PO SCH (08:41)
[2016-08-14] MEDS: FAMOTIDINE 20 MG TAB PO SCH (08:41)
[2016-08-14] MEDS: INSULIN LISPRO (humaLOG) 300 UNIT/3 ML VIAL SQ SCH ×2 (08:42→13:58)
[2016-08-14 11:55] LABS: Glucose,Whole Blood 159 mg/dL (75-99)
--- NOTE | 2016-08-14 12:30 | P.PN ---
Subjective 71-year-old morbidly obese female one of Dr. 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 Patient apparently developed to have sinusitis over 3 months ago was treated with several courses of oral antibiotics but continued to have complaint of numbness not feeling well a pressure discomfort and facial area mostly in the left side. Patient was referred for CAT scan of the sinus and the brain back in August 08 finding surprisingly came back with slight Rap[place] of the left temporal area consistent with mild cerebral edema of any clear etiology with no finding of spot of metastasis. Patient was referred to emergency department by Dr. Solis 1 calling him today and complaining about the numbness in her face and lip area. Patient was seen and evaluated no other neuro finding or deficit was found with her current complaint patient was giving Decadron will be admitted to the hospital will consult neurology and make an arrangement for an MRI of the brain with gallium. 08/13: Patient was unable to undergo MRI due to her size. Case was discussed with Dr. Patino with recommendations for outpatient MRI in a center that will accommodate her. Metastatic disease from her breast cancer is very unlikely. Patient was given option of being transferred to another facility or doing an MRI as an outpatient. She will discuss with her family and make a decision. Her blood glucose has been elevated due to steroids. P C reactive protein was 26.2. Hemoglobin A1c 6.6.atient is currently on dexamethasone 4 mg 3 times daily. INR 2.4. Objective - Vital Signs Vital signs: Vital Signs Temp 97.7 F 08/13/16 07:00 Pulse 61 08/13/16 08:00 Resp 16 08/13/16 08:00 BP 147/74 08/13/16 07:00 Pulse Ox 92 L 08/13/16 07:00 Intake & Output 08/12/16 08/13/16 08/13/16 18:59 06:59 18:59 Intake Total 1180 160 Balance 1180 160 Weight 141.974 kg 138.5 kg 138.5 kg Intake: Intake, IV Titration 160 Amount Sodium Chloride 0.9% 1, 160 000 ml @ 20 mls/hr IV . Q24H [facility] Rx#:[id number] Oral 1180 Other: Voiding Method Bedside Commode Bedside Commode # Voids 2 - Exam General appearance: no average body habitus, cooperative, no disheveled, no mild distress, morbidly obese, no acute distress, no obese, no severe distress, no thin - EENT Eyes: abnormal pupil, no anicteric sclerae, no disc margins sharp, no edentulous , no EOMI, no PERRLA, no fundus normal, no photophobia, no dentition normal, no poor dentition, no ptosis, no scleral icterus, normal appearance ENT: no hard of hearing, no hearing grossly normal, no NA/AT, normal oropharynx , no other, pharyngeal erythema, no thrush, no tonsillar exudates, no tonsillar swelling Ears: bilateral: normal, bulging - Neck Neck: no lymphadenopathy, normal ROM, no other, no rigidity, no stridor, no thyromegaly Carotids: bilateral: upstroke normal, upstroke delayed Thyroid: bilateral: normal size, enlarged - Respiratory Respiratory: right: rales, bilateral: diminished, dullness - Cardiovascular Rhythm: regular Heart sounds: normal: S1, S2 Abnormal Heart Sounds: systolic murmur, S3 Gallop - Gastrointestinal General gastrointestinal: no absent bowel sounds, decreased bowel sounds, no distended, no hepatomegaly, no hyperactive bowel sounds, no normal bowel sounds , no organomegaly, no rigid, no scaphoid, soft, no splenomegaly, no tenderness, no umbilical hernia, no ventral hernia - Integumentary Integumentary: no calor, no cellulitis, no cyanotic, no decreased turgor, no flushed, no jaundiced, no normal, no normal turgor, pale, rash, no ulcer - Neurologic Patient is alert and oriented 3, and nerve to 12 intact slight numbness in the left side of her cheek area and the nose along with her upper lip only. Strength and motor function are equally normal in both side no abnormal gait or balance. Neurologic: CNII-XII intact - Musculoskeletal Musculoskeletal: gait normal, generalized weakness, strength equal bilaterally, no right sided weakness, no left sided weakness - Psychiatric Psychiatric: A&O x's 3, appropriate affect, no intact judgment & insight - Labs CBC & Chem 7: 08/13/16 07:56 08/13/16 07:56 Labs: Abnormal Lab Results - Last 24 Hours (Table) 05/11/2108/12/16 08/13/16 Range/Units 17:24 21:40 06:53 PT (9.0-12.0) sec Potassium (3.5-5.1) mmol/L BUN (7-17) mg/dL Creatinine (0.52-1.04) mg/dL Glucose (74-99) mg/dL POC Glucose (mg/dL) 185 H 247 H 136 H (75-99) mg/dL Calcium (8.4-10.2) mg/dL 08/13/16 08/13/16 08/13/16 Range/Units 07:56 07:56 11:20 PT 23.4 H (9.0-12.0) sec Potassium 5.2 H (3.5-5.1) mmol/L BUN 41 H (7-17) mg/dL Creatinine 1.11 H (0.52-1.04) mg/dL Glucose 145 H (74-99) mg/dL POC Glucose (mg/dL) 150 H (75-99) mg/dL Calcium 10.4 H (8.4-10.2) mg/dL Assessment and Plan Plan: 1 possible CVA/TIA: With patient's current symptoms patient be hospitalized consult neurology CAT scan of the brain was performed if possible MRI of the brain will be order further testing based on neurology recommendation. 2 possible metastasis to the left temporal area is unlikely. Continue Decadron. MRI of the brain. 3 chronic sinusitis with abnormal finding on a CAT scan of the sinus: Patient be referred to ENT if finding of the MRI of the brain does not reflect any cerebral edema patient entire finding most likely consistent with a chronic sinusitis has not improved with medical management might require surgery. 4 breast-cancer: Post modified right-sided mastectomy has been seen oncology. 5 diabetes: Patient will be continue on insulin along with sliding scales coverage. 6 hypertension: Has been on ramipril 10 mg daily. 7 A. fib with well controlled pulse rate: Patient is still on warfarin, and digoxin PT/INR be done daily. 8 hyperlipidemia: Continue patient on fenofibrate for now. 9 COPD: Continue updraft treatment and if needed oxygen to keep her pulse ox above 90%. 10 GI prophylaxis: Patient will be on Pepcid 20 mg daily. 11 DVT prophylaxis: Remain on anticoagulation with therapeutic INR. CODE STATUS: Full code. Discharge plan: Return home Impression and plan of care have been directed as dictated by the signing physician. Erin Elias nurse practitioner acting as scribe for signing physician.
--- NOTE | 2016-08-14 12:34 | P.DS ---
Providers Date of admission: 08/12/16 13:56 Expected date of discharge: 08/14/16 Attending physician: Hernando Banegas Consults: 08/12/16 17:17 Consult Physician Routine Consulting Provider: Wander Liu Consult Reason/Comments: sinus infection Do you want consulting provider notified?: Yes 08/12/16 17:22 Consult Physician Routine Consulting Provider: Robert Maria Consult Reason/Comments: temporal lobe anomally on the left Do you want consulting provider notified?: Yes 08/12/16 18:43 Consult Physician Routine Consulting Provider: Sammy Wilson Consult Reason/Comments: Patient known to you. Hx of Breast CA, now possible brain mets Do you want consulting provider notified?: Yes Primary care physician: Seth Solis [facility] Course: 71-year-old morbidly obese female one of Dr. 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 Patient apparently developed to have sinusitis over 3 months ago was treated with several courses of oral antibiotics but continued to have complaint of numbness not feeling well a pressure discomfort and facial area mostly in the left side. Patient was referred for CAT scan of the sinus and the brain back in August 08 finding surprisingly came back with slight Trinity of the left temporal area consistent with mild cerebral edema of any clear etiology with no finding of spot of metastasis. Patient was referred to emergency department by Dr. Solis 1 calling him today and complaining about the numbness in her face and lip area. Patient was seen and evaluated no other neuro finding or deficit was found with her current complaint patient was giving Decadron will be admitted to the hospital will consult neurology and make an arrangement for an MRI of the brain with gallium. 08/13: Patient was unable to undergo MRI due to her size. Case was discussed with Dr. Patino with recommendations for outpatient MRI in a center that will accommodate her. Metastatic disease from her breast cancer is very unlikely. Patient was given option of being transferred to another facility or doing an MRI as an outpatient. She will discuss with her family and make a decision. Her blood glucose has been elevated due to steroids. P C reactive protein was 26.2. Hemoglobin A1c 6.6.atient is currently on dexamethasone 4 mg 3 times daily. INR 2.4. 5/10: MRI has been scheduled as an outpatient. Patient will be discharged home on dexamethasone and while she is on that she has been instructed to take Humalog 5 units before meals and at bedtime in addition to her usual scale. Patient has been clearly instructed to not take Levemir and Lantus at the same time. Patient has no change in her symptoms. Patient will be discharged home today in stable condition. Discharge diagnoses: 1 abnormal CAT scan finding with unclear significance. 2 possible metastasis to the left temporal area is unlikely 3 chronic sinusitis with abnormal finding on a CAT scan of the sinus 4 breast-cancer: Post modified right-sided mastectomy 5 diabetes mellitus type II, insulin requiring 6 hypertension 7 chronic A. fib with well controlled pulse rate 8 hyperlipidemia 9 COPD Discharge plan: Return home Impression and plan of care have been directed as dictated by the signing physician. Erin Elias nurse practitioner acting as scribe for signing physician. Patient Condition at Discharge: Good Plan - Discharge Summary New Discharge Prescriptions: Dexamethasone [Hexadrol] 4 mg PO BID #60 tab INSULIN LISPRO (HumaLOG) [HumaLOG] 5 units SQ ACHS #1 vial Discharge Medication List Furosemide [Lasix] 40 mg PO DAILY PRN 09/06/13 [History] Ramipril 10 mg PO DAILY 09/06/13 [History] Verapamil HCl [Verelan] 360 mg PO DAILY@1600 09/06/13 [History] Multivitamins, Thera [Multivitamin (formulary)] 1 tab PO DAILY 05/02/14 [History ] Fenofibrate 160 mg PO DAILY@1600 03/01/16 [History] Warfarin [Coumadin] 2.5 mg PO DAILY 03/26/16 [History] Digoxin 250 mcg PO DAILY 04/02/16 [History] Albuterol Nebulized [Ventolin Nebulized] 2.5 mg INHALATION RT-BID PRN 08/12/16 [ History] Pseudoephedrine HCl [Sudafed] 60 mg PO Q4HR PRN 08/12/16 [History] Dexamethasone [Hexadrol] 4 mg PO BID #60 tab 08/14/16 [Rx] INSULIN LISPRO (HumaLOG) [HumaLOG] 5 units SQ ACHS #1 vial 08/14/16 [Rx] INSULIN LISPRO (humaLOG) [humaLOG (formulary)] 0 unit SQ ACHS vial 08/14/16 [Rx ] Insulin Glargine [Lantus] 90 units SQ QAM #0 08/14/16 [Rx] Follow up Appointment(s)/Referral(s): Wander Liu MD [STAFF PHYSICIAN] - 08/15/16 10:30 am (Please arrive at 10:00) Seth Solis DO [Primary Care Provider] - 09/19/16 11:40 am Sammy Wilson MD [STAFF PHYSICIAN] - 08/26/16 3:45 pm Patient Instructions/Handouts: Dexamethasone (By mouth), Insulin Lispro (By injection) Activity/Diet/Wound Care/Special Instructions: Vilma kong August 20 @11:30 Bring insurance cards and order. Discharge Disposition: HOME SELF-CARE
[2016-08-14] MEDS: MULTIVITAMINS, THERA 1 EACH TAB PO SCH (13:58)
== END 2016-08-14 15:25 | disposition home or self-care (01) | DRG 153 ==
LOC: EC 11:04 → 5ONC 13:56
PROVIDERS: ADMIT Internal Medicine Geriatric Medicine; ATTEND Internal Medicine Geriatric Medicine
DX: J32.9 Chronic sinusitis, unspecified (principal); N17.9 Acute kidney failure, unspecified; E11.65 Type 2 diabetes mellitus with hyperglycemia; E87.5 Hyperkalemia; I48.2 Chronic atrial fibrillation; I50.9 Heart failure, unspecified; I11.0 Hypertensive heart disease with heart failure; F32.9 Major depressive disorder, single episode, unspecified; E86.1 Hypovolemia; Z68.43 Body mass index [BMI] 50.0-59.9, adult; E78.5 Hyperlipidemia, unspecified; J44.9 Chronic obstructive pulmonary disease, unspecified; E66.01 Morbid (severe) obesity due to excess calories; T38.0X5A Adverse effect of glucocorticoids and synthetic analogues, initial encounter; D72.829 Elevated white blood cell count, unspecified; G47.33 Obstructive sleep apnea (adult) (pediatric); F41.9 Anxiety disorder, unspecified; R90.89 Other abnormal findings on diagnostic imaging of central nervous system; R53.1 Weakness; M19.019 Primary osteoarthritis, unspecified shoulder; M17.10 Unilateral primary osteoarthritis, unspecified knee; R20.0 Anesthesia of skin; R29.701 NIHSS score 1; Z98.51 Tubal ligation status; Z79.01 Long term (current) use of anticoagulants; Z82.49 Family history of ischemic heart disease and other diseases of the circulatory system; Z79.899 Other long term (current) drug therapy; Z85.3 Personal history of malignant neoplasm of breast; Z90.11 Acquired absence of right breast and nipple; Z83.3 Family history of diabetes mellitus; Z90.49 Acquired absence of other specified parts of digestive tract; Z98.49 Cataract extraction status, unspecified eye; Z80.9 Family history of malignant neoplasm, unspecified; Z91.041 Radiographic dye allergy status; Z91.013 Allergy to seafood; Z91.048 Other nonmedicinal substance allergy status; Z79.4 Long term (current) use of insulin; Z87.19 Personal history of other diseases of the digestive system; Z86.19 Personal history of other infectious and parasitic diseases; Z86.69 Personal history of other diseases of the nervous system and sense organs; Z79.2 Long term (current) use of antibiotics
CPT/HCPCS: 36415; 80048; 83036; 85025; 85610; 85652; 86140; 96365; 96375; 99285

== ENCOUNTER 2016-09-10 12:17 | Emergency (ER) | payer MEDICARE, OTHER ==
--- NOTE | 2016-09-10 12:53 | ED ---
General Adult HPI - General Chief complaint: Weakness Stated complaint: Leg bruising Time Seen by Provider: 09/10/16 12:31 Source: patient, family, RN notes reviewed Mode of arrival: wheelchair Limitations: no limitations - History of Present Illness Initial comments: Patient is a pleasant 71-year-old female presenting to the emergency Department with family with concerns for bruising of the left leg. Onset was this morning. Patient states there might be some discomfort. Patient is on Coumadin. Patient states she takes a secondary to history of CHF. Patient has been dealing with left-sided headache and facial pain for the past several months. Patient has had computed tomography scan followed up by MRI. Patient has seen her doctor as well as her oncologist as well as an ENT. There is a questionable computed tomography scan however they do not feel is related to metastasis or breast cancer. MRI was done and reviewed. Patient has had decreased appetite and losing weight over the past 6 months. Patient did have a mastectomy done around 6 months ago. - Related Data Home Medications Medication Instructions Recorded Confirmed Furosemide [Lasix] 40 mg PO DAILY PRN 09/06/13 09/10/16 Ramipril 10 mg PO DAILY 09/06/13 09/10/16 Verapamil HCl [Verelan] 360 mg PO DAILY@1600 09/06/13 09/10/16 Multivitamins, Thera [Multivitamin 1 tab PO DAILY 05/02/14 09/10/16 (formulary)] Fenofibrate 160 mg PO DAILY@1600 03/01/16 09/10/16 Warfarin [Coumadin] 2.5 mg PO HS 03/26/16 09/10/16 Digoxin 250 mcg PO DAILY 04/02/16 09/10/16 Albuterol Nebulized [Ventolin 2.5 mg INHALATION RT-BID PRN 08/12/16 09/10/16 Nebulized] HYDROcodone/APAP 10-325MG [[place] 1 tab PO Q8H PRN 09/10/16 09/10/16 10-325] Previous Rx's Medication Instructions Recorded Insulin Glargine [Lantus] 90 units SQ QAM #0 08/14/16 Allergies Allergy/AdvReac Type Severity Reaction Status Date / Time iodine Allergy Swelling Verified 09/10/16 14:02 shellfish derived Allergy Swelling Verified 09/10/16 14:02 TAPE AdvReac Itching Uncoded 09/10/16 12:27 Review of Systems ROS Statement: Those systems with pertinent positive or pertinent negative responses have been documented in the HPI. ROS Other: All systems not noted in ROS Statement are negative. Constitutional: Denies: fever Eyes: Denies: eye pain ENT: Denies: ear pain Respiratory: Denies: cough Cardiovascular: Denies: chest pain Endocrine: Reports: fatigue Gastrointestinal: Denies: abdominal pain Genitourinary: Denies: dysuria Musculoskeletal: Denies: back pain Skin: Denies: rash Neurological: Reports: weakness (Generalized) Hematological/Lymphatic: Reports: easy bruising Past Medical History Past Medical History: Atrial Fibrillation, Cancer, Heart Failure, COPD, Diabetes Mellitus, Hypertension, Osteoarthritis (OA), Sleep Apnea/CPAP/BIPAP Additional Past Medical History / Comment(s): ARTHRITIS PAIN KNEES & SHOULDERS. , SLEEP APNEA (DOES NOT USE C-PAP), DIVERTICULITIS., DENIES EDEMA AT THIS TIME. , NEW DIAGNOSIS OF BREAST CANCER., SINUS DRAINAGE. History of Any Multi-Drug Resistant Organisms: None Reported Past Surgical History: Breast Surgery, Section, Cholecystectomy Additional Past Surgical History / Comment(s): 04/02/16 Modified R breast radical mastectomy with sentinel lymph node bx. Other surgical hx: Cataract surgery, tubal ligation, colonoscopy , x3., Right Breast Bx. Past Anesthesia/Blood Transfusion Reactions: No Reported Reaction Past Psychological History: Anxiety, Depression Additional Psychological History / Comment(s): Pt has a tamika who resides with her. She gets around in a power chair. She does not drive, she [place] the bus [place]. Smoking Status: Never smoker Past Alcohol Use History: None Reported Past Drug Use History: None Reported - Past Family History Mother Family Medical History: Congestive Heart Failure (CHF), Diabetes Mellitus Father Family Medical History: Vascular Disorder Additional Family Medical History / Comment(s): passed with aortic rupture at 73yrs old Sister(s) Family Medical History: Cancer Additional Family Medical History / Comment(s): SISTER AND SISTERS DAUGHTER- CANCER Brother(s) Family Medical History: Diabetes Mellitus Son(s) Family Medical History: No Reported History Daughter(s) Family Medical History: No Reported History General Exam Limitations: no limitations General appearance: alert, in no apparent distress, obese Head exam: Present: atraumatic, normocephalic, other (No tenderness over the temporal artery) Eye exam: Present: normal appearance, PERRL, EOMI. Absent: nystagmus ENT exam: Present: normal oropharynx Neck exam: Present: normal inspection Respiratory exam: Present: normal lung sounds bilaterally Cardiovascular Exam: Present: regular rate, irregular rhythm GI/Abdominal exam: Present: soft. Absent: tenderness Extremities exam: Present: other (Left lower inner thigh with area of ecchymosis approximately 12 x 14 cm no significant tenderness.). Absent: calf tenderness Neurological exam: Present: alert, CN II-XII intact. Absent: motor sensory deficit Expanded Motor strength exam: RUE: 5, LUE: 5, RLE: 5, LLE: 5 Psychiatric exam: Present: normal affect, normal mood Skin exam: Present: other (Left lower posterior thigh ecchymosis) Course Vital Signs 09/10/16 09/10/16 09/10/16 12:20 13:38 14:21 Temperature 98.0 F Pulse Rate 89 76 82 Respiratory 18 18 18 Rate Blood Pressure 210/149 147/97 114/63 O2 Sat by Pulse 96 100 100 Oximetry EKG Findings - EKG Comments: EKG Findings:: A. fib with rate of 77. QRS 104. QT 360. QTC 47. Normal axis. Low QRS voltage. Incomplete right bundle-branch block. Diffuse T-wave inversion. Medical Decision Making - Medical Decision Making Case was discussed in detail with Dr. Patino who is familiar with this patient. He does recommend vitamin K 10 mg IV and discharged. He does recommend patient continue to follow-up with neurology as planned. He states patient has had previous sedimentation rate that was normal as well as rheumatology evaluation. Repeat Blood pressure has normalized. - Lab Data Result diagrams: 09/10/16 12:59 09/10/16 12:59 Lab Results 09/10/16 09/10/16 09/10/16 Range/Units 12:54 12:59 12:59 WBC 8.6 (3.8-10.6) k/uL RBC 3.65 L (3.80-5.40) m/uL Hgb 11.0 L (11.4-16.0) gm/dL Hct 33.5 L (34.0-46.0) % MCV 91.9 (80.0-100.0) fL MCH 30.2 (25.0-35.0) pg MCHC 32.9 (31.0-37.0) g/dL RDW 14.2 (11.5-15.5) % Plt Count 300 (150-450) k/uL Neutrophils % 77 % Lymphocytes % 15 % Monocytes % 5 % Eosinophils % 1 % Basophils % 0 % Neutrophils # 6.6 (1.3-7.7) k/uL Lymphocytes # 1.3 (1.0-4.8) k/uL Monocytes # 0.5 (0-1.0) k/uL Eosinophils # 0.1 (0-0.7) k/uL Basophils # 0.0 (0-0.2) k/uL PT (9.0-12.0) sec INR (<1.1) APTT (22.0-30.0) sec Sodium (137-145) mmol/L Potassium (3.5-5.1) mmol/L Chloride (98-107) mmol/L Carbon Dioxide (22-30) mmol/L Anion Gap mmol/L BUN (7-17) mg/dL Creatinine (0.52-1.04) mg/dL Est GFR (MDRD) Af Amer (>60 ml/min/1.73 sqM) Est GFR (MDRD) Non-Af (>60 ml/min/1.73 sqM) Glucose (74-99) mg/dL Calcium (8.4-10.2) mg/dL Phosphorus (2.5-4.5) mg/dL Magnesium (1.6-2.3) mg/dL Total Bilirubin (0.2-1.3) mg/dL AST (14-36) U/L ALT (9-52) U/L Alkaline Phosphatase (38-126) U/L Total Creatine Kinase 81 (30-135) U/L CK-MB (CK-2) 1.3 (0.0-2.4) ng/mL CK-MB (CK-2) Rel Index 1.6 Troponin I <0.012 (0.000-0.034) ng/mL Total Protein (6.3-8.2) g/dL Albumin (3.5-5.0) g/dL Urine Color Yellow Urine Appearance Clear (Clear) Urine pH 7.5 (5.0-8.0) Ur Specific [place] 1.013 (1.001-1.035) Urine Protein Trace H (Negative) Urine Glucose (UA) Negative (Negative) Urine Ketones Negative (Negative) Urine Blood Small H (Negative) Urine Nitrite Negative (Negative) Urine Bilirubin Negative (Negative) Urine Urobilinogen 12.0 (<2.0) mg/dL Ur Leukocyte Esterase Moderate H (Negative) Urine RBC 68 H (0-5) /hpf Urine WBC 8 H (0-5) /hpf Ur Squamous Epith Cells 1 (0-4) /hpf Urine Mucus Rare H (None) /hpf 09/10/16 09/10/16 Range/Units 12:59 12:59 WBC (3.8-10.6) k/uL RBC (3.80-5.40) m/uL Hgb (11.4-16.0) gm/dL Hct (34.0-46.0) % MCV (80.0-100.0) fL MCH (25.0-35.0) pg MCHC (31.0-37.0) g/dL RDW (11.5-15.5) % Plt Count (150-450) k/uL Neutrophils % % Lymphocytes % % Monocytes % % Eosinophils % % Basophils % % Neutrophils # (1.3-7.7) k/uL Lymphocytes # (1.0-4.8) k/uL Monocytes # (0-1.0) k/uL Eosinophils # (0-0.7) k/uL Basophils # (0-0.2) k/uL PT >130.0 H (9.0-12.0) sec INR >10.0 H* (<1.1) APTT 67.0 H (22.0-30.0) sec Sodium 137 (137-145) mmol/L Potassium 4.9 (3.5-5.1) mmol/L Chloride 106 (98-107) mmol/L Carbon Dioxide 24 (22-30) mmol/L Anion Gap 7 mmol/L BUN 56 H (7-17) mg/dL Creatinine 1.16 H (0.52-1.04) mg/dL Est GFR (MDRD) Af Amer 56 (>60 ml/min/1.73 sqM) Est GFR (MDRD) Non-Af 46 (>60 ml/min/1.73 sqM) Glucose 167 H (74-99) mg/dL Calcium 9.0 (8.4-10.2) mg/dL Phosphorus 2.5 (2.5-4.5) mg/dL Magnesium 1.6 (1.6-2.3) mg/dL Total Bilirubin 0.8 (0.2-1.3) mg/dL AST 29 (14-36) U/L ALT 36 (9-52) U/L Alkaline Phosphatase 42 (38-126) U/L Total Creatine Kinase (30-135) U/L CK-MB (CK-2) (0.0-2.4) ng/mL CK-MB (CK-2) Rel Index Troponin I (0.000-0.034) ng/mL Total Protein 6.0 L (6.3-8.2) g/dL Albumin 3.0 L (3.5-5.0) g/dL Urine Color Urine Appearance (Clear) Urine pH (5.0-8.0) Ur Specific [place] (1.001-1.035) Urine Protein (Negative) Urine Glucose (UA) (Negative) Urine Ketones (Negative) Urine Blood (Negative) Urine Nitrite (Negative) Urine Bilirubin (Negative) Urine Urobilinogen (<2.0) mg/dL Ur Leukocyte Esterase (Negative) Urine RBC (0-5) /hpf Urine WBC (0-5) /hpf Ur Squamous Epith Cells (0-4) /hpf Urine Mucus (None) /hpf Disposition Clinical Impression: Coagulopathy Disposition: HOME SELF-CARE Condition: Stable Instructions: Warfarin (By mouth), Bleeding Disorders (ED) Additional Instructions: Please hold Coumadin until released by primary care physician. Have your Coumadin level rechecked incident of the week. Please follow-up with your primary care physician this week. Please also follow-up with your neurologist within the next week. Return for weakness, bleeding or increased bruising, worsening symptoms or other concerns. Referrals: Seth Solis DO [Primary Care Provider] - 1-2 days Time of Disposition: 14:47
[2016-09-10 13:25] LABS: Basophils % (A) 0 %; CHCM 32.8; Eosinophils # (A) 0.1 k/uL (0-0.7); Eosinophils % (A) 1 %; HCT 33.5 % (34.0-46.0); HDW 2.54; Luc % (Auto) 1; Lymphocytes # (A) 1.3 k/uL (1.0-4.8); Lymphocytes % (A) 15 %; MCH 30.2 pg (25.0-35.0); MCHC 32.9 g/dL (31.0-37.0); MCV 91.9 fL (80.0-100.0); Mean Platelet Volume 7.5; Monocytes # (A) 0.5 k/uL (0-1.0); Monocytes % (A) 5 %; Neutrophils # (A) 6.6 k/uL (1.3-7.7); Neutrophils % (A) 77 %; RBC 3.65 m/uL (3.80-5.40); RDW 14.2 % (11.5-15.5); WBC 8.6 k/uL (3.8-10.6); WBC (Perox) 9.14
--- NOTE | 2016-09-10 13:28 | XR ---
EXAMINATION TYPE: XR chest 2V DATE OF EXAM: 09/10/2016 COMPARISON: Chest x-ray May 02, 2014. HISTORY: Weakness. TECHNIQUE: Frontal and lateral views of the chest are obtained. FINDINGS: Exam is slightly suboptimal secondary to patient's large body habitus. There is no focal ai r space opacity, pleural effusion, or pneumothorax seen. Surgical clips right hilar region are seen. Hilar fullness bilaterally may reflect underlying pulmonary artery hypertension, clinical correlatio n advised. The cardiac silhouette size is upper limits of normal with ectatic thoracic aorta. Marked degenerative change bilateral shoulders is redemonstrated. Prominent spurring lower thoracic spine is seen. IMPRESSION: No acute cardiopulmonary process.
[2016-09-10 13:46] LABS: Magnesium 1.6 mg/dL (1.6-2.3); Phosphorous 2.5 mg/dL (2.5-4.5); Potassium 4.9 mmol/L (3.5-5.1); Total Bilirubin 0.8 mg/dL (0.2-1.3)
[2016-09-10 14:02] LABS: Creatine Kinase 81 U/L (30-135)
[2016-09-10 14:03] LABS: Prothrombin Time >130.0 sec (9.0-12.0)
[2016-09-10 14:03] LABS: Appearance,Urine Clear (Clear); Bilirubin,Urine Negative (Negative); Glucose,Urine (UA) Negative (Negative); Ketones,Urine Negative (Negative); Leukocyte Esterase,Urine Moderate (Negative); Mucus,Urine Rare /hpf; Nitrite,Urine Negative (Negative); PH, Urine 7.5 (5.0-8.0); Particle Count 9941; Protein,Urine Trace (Negative); RBC,Urine 68 /hpf (0-5); Specific Gravity,Urine 1.013 (1.001-1.035); Squamous Epithelial Cell,Urine 1 /hpf (0-4); UA Billing (MACRO vs. MICRO) MICRO; WBC,Urine 8 /hpf (0-5)
[2016-09-10 14:05] LABS: INR >10.0 (<1.1)
[2016-09-10 14:15] LABS: Creatine Kinase MB 1.3 ng/mL (0.0-2.4); Troponin I <0.012 ng/mL (0.000-0.034)
[2016-09-10] MEDS ORDERED: PHYTONADIONE 10 MG in SODIUM CHLORIDE 0.9% 50 ML IVPB STA (14:45)
[2016-09-10 16:29] VITALS: BP 131/70; PULSE 85; RESP 20; TEMP 97.6
== END 2016-09-10 16:29 | disposition home or self-care (01) ==
LOC: EC 12:17
DX: D68.9 Coagulation defect, unspecified (principal); I48.91 Unspecified atrial fibrillation; I50.9 Heart failure, unspecified; I10 Essential (primary) hypertension; Z79.01 Long term (current) use of anticoagulants; Z79.899 Other long term (current) drug therapy; Z91.048 Other nonmedicinal substance allergy status; Z91.013 Allergy to seafood; Z88.8 Allergy status to other drugs, medicaments and biological substances
CPT/HCPCS: 99284; 96365; 36415; 93005; 80053; 82550; 82553; 83735; 84100; 84484; 85025; 85610; 85730; 81001; 71020; J3430

== ENCOUNTER → 2016-10-11 | Outpatient (CLI) | payer MEDICARE, OTHER ==
[2016-10-11 16:07] LABS: C Reactive Protein 50.5 mg/L (<10.0); Carbamazepine (Tegretol) 4.4 ug/mL
== END ==
LOC: LABWHC1 11:13
PROVIDERS: ATTEND Psychiatry & Neurology Neurology
DX: G50.0 Trigeminal neuralgia (principal); M31.5 Giant cell arteritis with polymyalgia rheumatica
CPT/HCPCS: 36415; 80156; 85652; 86140

== ENCOUNTER → 2016-11-23 | Outpatient (CLI) | payer MEDICARE, OTHER ==
--- NOTE | 2016-11-24 11:25 | PE ---
EXAMINATION TYPE: PET CT fusion skull to thigh DATE OF EXAM: 11/23/2016 COMPARISON: MRI [facility] diagnostics dated 08/20/2016 Prior PET/CT: None HISTORY: Abnormal MRI, history of breast cancer left temporal lobe mass TECHNIQUE: Following the intravenous administration of 15.6 mCi of F-18 FDG, whole body images are p erformed from the skull base to the midthigh. Images are reviewed on the computer in the coronal, ax ial, and sagittal planes. Reconstructed rotating images are created on independent workstation and r eviewed on the computer. A localization and attenuation correction CT is performed in conjunction w ith the PET scan. DLP: 581.2 mGycm SCAN: Initial Blood glucose: 98 mg/dL Average Mediastinum SUV: 2.3 Average Liver SUV: 3.1 FINDINGS: NECK: Suspicious focal uptake is not identified. There is some indistinct slight increase uptake at the petrous ridge. This appears to has extension into the sap project manager spaces. This may have extension into the inferior right middle cranial fossa which would correspond to the abnormal signal on the MRI . Findings however are nonspecific. Inflammatory change is within the differential. A focal metastati c lesion is not identified. Clinical correlation and monitoring will be required. THORAX: No abnormal uptake ABDOMEN: No abnormal uptake PELVIS: No abnormal uptake OSSEOUS STRUCTURES: No abnormal uptake LOCALIZATION CT: The ascending thoracic aorta at the level the main pulmonary artery is 3.9 cm. The m ain pulmonary artery the bifurcation is 3.7 cm. Coronary artery calcification is present. There is li mitation on the localization CT due to patient body habitus. COMPARISON: A study appears to correspond to some slight increase uptake on the PET images within the brain. Additionally however, this extends into the petrous bone. IMPRESSION: 1. Vague increased uptake along the inferior left temporal lobe and involvement of the left petrous r idge and possibly sap project manager space on the left. Findings correspond to the MRI study but are nonspeci fic. Inflammatory changes within the differential. Typical focal uptake to suggest metastatic disease is not identified. Metastasis is considered less likely but remains within the differential. Recomme nd short-term follow-up MRI. Previous MRI was performed August 2016 and repeat MRI at this time may be u seful for additional evaluation.
== END | disposition home or self-care (01) ==
LOC: RADPETMAIN 15:02
PROVIDERS: ATTEND Family Medicine
DX: C50.919 Malignant neoplasm of unspecified site of unspecified female breast (principal); R22.0 Localized swelling, mass and lump, head
CPT/HCPCS: 78815; A9552

== ENCOUNTER → 2016-12-06 | Outpatient (CLI) | payer MEDICARE, OTHER ==
--- NOTE | 2016-12-06 23:28 | MR ---
EXAMINATION TYPE: MR brain wo/w con DATE OF EXAM: 12/06/2016 COMPARISON: NONE HISTORY: Abnormal PET and MRI from Outside Source TECHNIQUE: Multiplanar, multisequence images of the brain and brainstem is performed without and with IV contras t, utilizing 15 mL intravenous Gadavist . FINDINGS: There is abnormal increased signal in the white matter of the left temporal lobe anteriorly . There is relative sparing of the temporal lobe cortex. There is no midline shift. There is no mass effect. I see no pathologic enhancement. There are small foci of increased signal in the subependymom a periventricular white matter that measure up to 5 mm. The total number is less than 5. The corpus callosum shows mild thinning. The brainstem is intact. The sella turcica appears normal. T here is some soft tissue enhancement involving the hardness inspector muscles on the left side anterior and m edial to the mandibular condyle. There are 2 small less than 1 cm nodular foci of enhancement in the left temporal lobe anteriorly on the coronal images. There is some asymmetric dural enhancement in th e anterior left temporal lobe as well. IMPRESSION: There is there is white matter edema in the left anterior temporal lobe that has increase d compared to the outside MR scan of 08/20/2016. There is also soft tissue enhancement and edema as ab ove involving the left side hardness inspector muscle tissue. There is left temporal lobe pathologic dural en hancement. Appearance is nonspecific. I would consider possibilities of metastatic disease, cerebritis. the pathologic process has progressed compared to the comparison exam from 08/20/2016. There are a few scattered small white matter high signal foci probably due to minimal small vessel is chemia.
== END | disposition home or self-care (01) ==
LOC: RADMRIMAIN 18:12
PROVIDERS: ATTEND Family Medicine
DX: R90.82 White matter disease, unspecified (principal)
CPT/HCPCS: 70553; A9581

== ENCOUNTER 2017-01-09 16:43 | Inpatient (IN) | payer MEDICARE, OTHER ==
--- NOTE | 2017-01-09 17:30 | ED ---
Weakness HPI - General Chief complaint: Weakness Stated complaint: Pain/Weakness Time Seen by Provider: 01/09/17 16:54 Source: patient, family, EMS Mode of arrival: EMS Limitations: physical limitation - History of Present Illness Initial comments: Patient is a 71-year-old female with a history of brain tumor, and breast cancer status post mastectomy last March who presents with a chief complaint of generalized weakness. She presents by EMS, her daughter accompanies her today. History is gathered from the patient and her daughter. The patient has been slowly declining since her operation March however this is been much accelerated over the last 3 weeks. The patient is generally limited in mobility however she is able to get around with a motorized scooter, and a manual wheelchair. Over the last 3 days however she has been unable to get out of bed. Patient had an accident today in her bed and also prompted their visit to the emergency department today. Patient admits to diffuse pain all over her body, and left-sided facial numbness which has been going on since June. - Related Data Home Medications Medication Instructions Recorded Confirmed Furosemide [Lasix] 40 mg PO DAILY PRN 09/06/13 01/09/17 Ramipril 10 mg PO DAILY 09/06/13 01/09/17 Verapamil HCl [Verelan] 360 mg PO DAILY@1600 09/06/13 01/09/17 Multivitamins, Thera [Multivitamin 1 tab PO DAILY 05/02/14 01/09/17 (formulary)] Warfarin [Coumadin] 2.5 mg PO HS 03/26/16 01/09/17 Digoxin 250 mcg PO DAILY 04/02/16 01/09/17 Albuterol Nebulized [Ventolin 2.5 mg INHALATION RT-BID PRN 08/12/16 01/09/17 Nebulized] Allopurinol [Zyloprim] 300 mg PO DAILY 01/09/17 01/09/17 Amoxicillin 875 mg PO BID 01/09/17 01/09/17 Fenofibrate Nanocrystallized 145 mg PO DAILY 01/09/17 01/09/17 [Fenofibrate] INSULIN LISPRO (HumaLOG) [HumaLOG] See Protocol SQ AC-TID 01/09/17 01/09/17 Insulin Glargine [Lantus] 100 units SQ QAM 01/09/17 01/09/17 Allergies Allergy/AdvReac Type Severity Reaction Status Date / Time iodine Allergy Swelling Verified 01/09/17 17:20 shellfish derived Allergy Swelling Verified 01/09/17 17:20 acetaminophen [From Climax] AdvReac DIZZINESS Verified 01/09/17 17:20 hydrocodone [From Climax] AdvReac DIZZINESS Verified 01/09/17 17:20 tramadol AdvReac DIZZINESS Verified 01/09/17 17:20 TAPE AdvReac Itching Uncoded 09/10/16 12:27 Review of Systems ROS Statement: Those systems with pertinent positive or pertinent negative responses have been documented in the HPI. ROS Other: All systems not noted in ROS Statement are negative. Constitutional: Reports: chills, weakness, weight change. Denies: fever Eyes: Denies: vision change ENT: Denies: congestion Respiratory: Denies: cough, dyspnea Cardiovascular: Reports: dyspnea on exertion. Denies: chest pain Endocrine: Reports: fatigue Gastrointestinal: Reports: nausea. Denies: abdominal pain Genitourinary: Reports: frequency. Denies: dysuria Musculoskeletal: Reports: arthralgia, myalgia Skin: Denies: rash Neurological: Reports: headache, weakness, numbness (Patient has left-sided facial numbness since June) Past Medical History Past Medical History: Atrial Fibrillation, Cancer, Heart Failure, COPD, Diabetes Mellitus, Hypertension, Osteoarthritis (OA), Sleep Apnea/CPAP/BIPAP Additional Past Medical History / Comment(s): ARTHRITIS PAIN KNEES & SHOULDERS. , SLEEP APNEA (DOES NOT USE C-PAP), DIVERTICULITIS., DENIES EDEMA AT THIS TIME. , NEW DIAGNOSIS OF BREAST CANCER., SINUS DRAINAGE. History of Any Multi-Drug Resistant Organisms: None Reported Past Surgical History: Breast Surgery, Section, Cholecystectomy Additional Past Surgical History / Comment(s): 04/02/16 Modified R breast radical mastectomy with sentinel lymph node bx. Other surgical hx: Cataract surgery, tubal ligation, colonoscopy , x3., Right Breast Bx. Past Anesthesia/Blood Transfusion Reactions: No Reported Reaction Past Psychological History: Anxiety, Depression Smoking Status: Never smoker Past Alcohol Use History: None Reported Past Drug Use History: None Reported - Past Family History Mother Family Medical History: Congestive Heart Failure (CHF), Diabetes Mellitus Father Family Medical History: Vascular Disorder Additional Family Medical History / Comment(s): passed with aortic rupture at 73yrs old Sister(s) Family Medical History: Cancer Additional Family Medical History / Comment(s): SISTER AND SISTERS DAUGHTER- CANCER Brother(s) Family Medical History: Diabetes Mellitus Son(s) Family Medical History: No Reported History Daughter(s) Family Medical History: No Reported History General Exam Limitations: physical limitation General appearance: alert, obese Head exam: Present: atraumatic, normocephalic Eye exam: Present: normal appearance ENT exam: Present: normal exam, mucous membranes moist Respiratory exam: Present: normal lung sounds bilaterally. Absent: respiratory distress Cardiovascular Exam: Present: tachycardia, irregular rhythm. Absent: regular rate GI/Abdominal exam: Present: soft, other (Abdominal exam is limited secondary to morbid obesity). Absent: distended Rectal exam: Present: deferred Extremities exam: Absent: pedal edema Back exam: Present: normal inspection, other (No ulcers or skin breakdown noted on the back.) Neurological exam: Present: alert, oriented X3, other (Patient is unable to walk secondary to weakness) Psychiatric exam: Present: anxious, flat affect Skin exam: Present: warm, dry, other (Patient has skin breakdown in the abdominal folds including 2 stage II ulcers surrounding erythema, and induration. There does not appear to be any fluctuance present) Course Vital Signs 01/09/17 01/09/17 16:49 18:00 Temperature 97.2 F L Pulse Rate 91 Respiratory 22 Rate Blood Pressure 153/58 O2 Sat by Pulse 97 Oximetry Medical Decision Making - Medical Decision Making Patient is 71-year-old severely debilitated female who presents with a chief complaint of generalized weakness, body aches, and inability to get out of bed for the last 3 days. Patient has a significant medical history of breast cancer , and an incompletely diagnosed brain tumor. On initial evaluation, patient appears ill, heart rate is a regular and tachycardic. Patient's daughter is present with her today, I discussed goals of care with them, the patient's daughter would like the patient to be able to be placed somewhere that she can have rehab to regain her strength. EKG performed at 5:49 PM shows atrial fibrillation with a rate of 91 bpm. EKG is otherwise nonspecific. A Farris catheter was placed secondary to skin breakdown on the patient's abdomen in the skin folds, and her inability to move. Light evaluation of this patient shows mild leukocytosis, and mildly elevated lactic acid. At this time, I believe the source to be the stage II ulcer in the skin fold of the patient's abdomen. Other significant lab abnormalities include an elevated BNP, and an x-ray that shows cardiomegaly. The patient's abdominal wounds were cultured. I'll send the patient on antibiotics, admit the patient for cellulitis, and placement to an extended care facility. 7:15 PM Case was discussed with Dr. Kwong who accepts admission of this patient with consult to infectious disease. The care plan was discussed with the patient and her family and they're agreeable. Patient was started on vancomycin and cefepime. Will hold on extra fluid bolus at this time given the elevated BNP, and cardiomegaly. - Lab Data Result diagrams: 01/09/17 17:36 01/09/17 17:36 Lab Results 01/09/17 01/09/17 01/09/17 Range/Units 17:36 17:36 17:36 WBC 11.6 H (3.8-10.6) k/uL RBC 4.39 (3.80-5.40) m/uL Hgb 12.6 (11.4-16.0) gm/dL Hct 39.0 (34.0-46.0) % MCV 88.9 D (80.0-100.0) fL MCH 28.6 (25.0-35.0) pg MCHC 32.2 (31.0-37.0) g/dL RDW 14.6 (11.5-15.5) % Plt Count 371 (150-450) k/uL Neutrophils % 84 % Lymphocytes % 9 % Monocytes % 5 % Eosinophils % 1 % Basophils % 0 % Neutrophils # 9.7 H (1.3-7.7) k/uL Lymphocytes # 1.1 (1.0-4.8) k/uL Monocytes # 0.6 (0-1.0) k/uL Eosinophils # 0.1 (0-0.7) k/uL Basophils # 0.0 (0-0.2) k/uL VBG pH 7.44 H (7.31-7.41) VBG pCO2 31 L (37-51) mmHg VBG HCO3 21 L (24-28) mmol/L Sodium (137-145) mmol/L Potassium (3.5-5.1) mmol/L Chloride (98-107) mmol/L Carbon Dioxide (22-30) mmol/L Anion Gap mmol/L BUN (7-17) mg/dL Creatinine (0.52-1.04) mg/dL Est GFR (MDRD) Af Amer (>60 ml/min/1.73 sqM) Est GFR (MDRD) Non-Af (>60 ml/min/1.73 sqM) Glucose (74-99) mg/dL Plasma Lactic Acid Jose Guadalupe (0.7-2.0) mmol/L Calcium (8.4-10.2) mg/dL Magnesium (1.6-2.3) mg/dL Total Bilirubin (0.2-1.3) mg/dL AST (14-36) U/L ALT (9-52) U/L Alkaline Phosphatase (38-126) U/L Total Creatine Kinase 101 (30-135) U/L CK-MB (CK-2) 1.3 (0.0-2.4) ng/mL CK-MB (CK-2) Rel Index 1.3 Troponin I <0.012 (0.000-0.034) ng/mL NT-Pro-B Natriuret Pep pg/mL Total Protein (6.3-8.2) g/dL Albumin (3.5-5.0) g/dL Urine Color Urine Appearance (Clear) Urine pH (5.0-8.0) Ur Specific [place] (1.001-1.035) Urine Protein (Negative) Urine Glucose (UA) (Negative) Urine Ketones (Negative) Urine Blood (Negative) Urine Nitrite (Negative) Urine Bilirubin (Negative) Urine Urobilinogen (<2.0) mg/dL Ur Leukocyte Esterase (Negative) Urine RBC (0-5) /hpf Urine WBC (0-5) /hpf Ur Squamous Epith Cells (0-4) /hpf Urine Bacteria (None) /hpf Hyaline Casts (0-2) /lpf Urine Mucus (None) /hpf 01/09/17 01/09/17 01/09/17 Range/Units 17:36 17:36 17:36 WBC (3.8-10.6) k/uL RBC (3.80-5.40) m/uL Hgb (11.4-16.0) gm/dL Hct (34.0-46.0) % MCV (80.0-100.0) fL MCH (25.0-35.0) pg MCHC (31.0-37.0) g/dL RDW (11.5-15.5) % Plt Count (150-450) k/uL Neutrophils % % Lymphocytes % % Monocytes % % Eosinophils % % Basophils % % Neutrophils # (1.3-7.7) k/uL Lymphocytes # (1.0-4.8) k/uL Monocytes # (0-1.0) k/uL Eosinophils # (0-0.7) k/uL Basophils # (0-0.2) k/uL VBG pH (7.31-7.41) VBG pCO2 (37-51) mmHg VBG HCO3 (24-28) mmol/L Sodium 137 (137-145) mmol/L Potassium 3.7 (3.5-5.1) mmol/L Chloride 106 (98-107) mmol/L Carbon Dioxide 18 L (22-30) mmol/L Anion Gap 13 mmol/L BUN 35 H (7-17) mg/dL Creatinine 1.00 (0.52-1.04) mg/dL Est GFR (MDRD) Af Amer >60 (>60 ml/min/1.73 sqM) Est GFR (MDRD) Non-Af 54 (>60 ml/min/1.73 sqM) Glucose 205 H (74-99) mg/dL Plasma Lactic Acid Jose Guadalupe (0.7-2.0) mmol/L Calcium 10.1 (8.4-10.2) mg/dL Magnesium 1.6 (1.6-2.3) mg/dL Total Bilirubin 0.8 (0.2-1.3) mg/dL AST 29 (14-36) U/L ALT 33 (9-52) U/L Alkaline Phosphatase 78 (38-126) U/L Total Creatine Kinase (30-135) U/L CK-MB (CK-2) (0.0-2.4) ng/mL CK-MB (CK-2) Rel Index Troponin I (0.000-0.034) ng/mL NT-Pro-B Natriuret Pep 1700 pg/mL Total Protein 6.4 (6.3-8.2) g/dL Albumin 2.9 L (3.5-5.0) g/dL Urine Color Yellow Urine Appearance Cloudy H (Clear) Urine pH 5.5 (5.0-8.0) Ur Specific [place] 1.016 (1.001-1.035) Urine Protein Trace H (Negative) Urine Glucose (UA) 1+ H (Negative) Urine Ketones 1+ H (Negative) Urine Blood Negative (Negative) Urine Nitrite Negative (Negative) Urine Bilirubin Negative (Negative) Urine Urobilinogen 6.0 (<2.0) mg/dL Ur Leukocyte Esterase Negative (Negative) Urine RBC 1 (0-5) /hpf Urine WBC 1 (0-5) /hpf Ur Squamous Epith Cells 3 (0-4) /hpf Urine Bacteria Rare H (None) /hpf Hyaline Casts 4 H (0-2) /lpf Urine Mucus Rare H (None) /hpf 01/09/17 Range/Units 17:41 WBC (3.8-10.6) k/uL RBC (3.80-5.40) m/uL Hgb (11.4-16.0) gm/dL Hct (34.0-46.0) % MCV (80.0-100.0) fL MCH (25.0-35.0) pg MCHC (31.0-37.0) g/dL RDW (11.5-15.5) % Plt Count (150-450) k/uL Neutrophils % % Lymphocytes % % Monocytes % % Eosinophils % % Basophils % % Neutrophils # (1.3-7.7) k/uL Lymphocytes # (1.0-4.8) k/uL Monocytes # (0-1.0) k/uL Eosinophils # (0-0.7) k/uL Basophils # (0-0.2) k/uL VBG pH (7.31-7.41) VBG pCO2 (37-51) mmHg VBG HCO3 (24-28) mmol/L Sodium (137-145) mmol/L Potassium (3.5-5.1) mmol/L Chloride (98-107) mmol/L Carbon Dioxide (22-30) mmol/L Anion Gap mmol/L BUN (7-17) mg/dL Creatinine (0.52-1.04) mg/dL Est GFR (MDRD) Af Amer (>60 ml/min/1.73 sqM) Est GFR (MDRD) Non-Af (>60 ml/min/1.73 sqM) Glucose (74-99) mg/dL Plasma Lactic Acid Jose Guadalupe 2.2 H* (0.7-2.0) mmol/L Calcium (8.4-10.2) mg/dL Magnesium (1.6-2.3) mg/dL Total Bilirubin (0.2-1.3) mg/dL AST (14-36) U/L ALT (9-52) U/L Alkaline Phosphatase (38-126) U/L Total Creatine Kinase (30-135) U/L CK-MB (CK-2) (0.0-2.4) ng/mL CK-MB (CK-2) Rel Index Troponin I (0.000-0.034) ng/mL NT-Pro-B Natriuret Pep pg/mL Total Protein (6.3-8.2) g/dL Albumin (3.5-5.0) g/dL Urine Color Urine Appearance (Clear) Urine pH (5.0-8.0) Ur Specific [place] (1.001-1.035) Urine Protein (Negative) Urine Glucose (UA) (Negative) Urine Ketones (Negative) Urine Blood (Negative) Urine Nitrite (Negative) Urine Bilirubin (Negative) Urine Urobilinogen (<2.0) mg/dL Ur Leukocyte Esterase (Negative) Urine RBC (0-5) /hpf Urine WBC (0-5) /hpf Ur Squamous Epith Cells (0-4) /hpf Urine Bacteria (None) /hpf Hyaline Casts (0-2) /lpf Urine Mucus (None) /hpf Disposition Clinical Impression: Cellulitis, Weakness, Lactic acidosis, Leukocytosis Disposition: ADMITTED IP TO THIS HOSP Condition: Fair Referrals: Seth Solis DO [Primary Care Provider] - 1-2 days Decision to Admit Reason: Admit from [facility] - Out of Hospital Transfer - Req. Specs Out of Hospital Transfer - Requested Specifics: Other Non-Acute
[2017-01-09 17:51] LABS: Basophils % (A) 0 %; CH 29.8; CHCM 33.7; Eosinophils # (A) 0.1 k/uL (0-0.7); Eosinophils % (A) 1 %; HDW 2.63; HGB 12.6 gm/dL (11.4-16.0); Luc # (Auto) 0.09; Luc % (Auto) 1; Lymphocytes # (A) 1.1 k/uL (1.0-4.8); Lymphocytes % (A) 9 %; MCH 28.6 pg (25.0-35.0); MCHC 32.2 g/dL (31.0-37.0); Monocytes # (A) 0.6 k/uL (0-1.0); Monocytes % (A) 5 %; Neutrophils # (A) 9.7 k/uL (1.3-7.7); Neutrophils % (A) 84 %; RBC 4.39 m/uL (3.80-5.40); RDW 14.6 % (11.5-15.5); WBC 11.6 k/uL (3.8-10.6); WBC (Perox) 11.71
[2017-01-09 17:52] LABS: Appearance,Urine Cloudy (Clear); Bacteria,Urine Rare /hpf; Bilirubin,Urine Negative (Negative); Glucose,Urine (UA) 1+ (Negative); Ketones,Urine 1+ (Negative); Leukocyte Esterase,Urine Negative (Negative); Mucus,Urine Rare /hpf; Nitrite,Urine Negative (Negative); PH, Urine 5.5 (5.0-8.0); Particle Count 3890; Protein,Urine Trace (Negative); RBC,Urine 1 /hpf (0-5); Specific Gravity,Urine 1.016 (1.001-1.035); Squamous Epithelial Cell,Urine 3 /hpf (0-4); UA Billing (MACRO vs. MICRO) MICRO; VBG PH 7.44 (7.31-7.41); WBC,Urine 1 /hpf (0-5)
[2017-01-09 17:56] LABS: MCV 88.9 fL (80.0-100.0)
[2017-01-09 18:08] LABS: ALT 33 U/L (9-52); AST 29 U/L (14-36); Alkaline Phosphatase 78 U/L (38-126); Anion Gap 13 mmol/L; Blood Urea Nitrogen 35 mg/dL (7-17); Calcium 10.1 mg/dL (8.4-10.2); Carbon Dioxide 18 mmol/L (22-30); Chloride 106 mmol/L (98-107); Glucose 205 mg/dL (74-99); Magnesium 1.6 mg/dL (1.6-2.3); Non-African American GFR(MDRD) 54 (>60 ml/min/1.73 sqM); Potassium 3.7 mmol/L (3.5-5.1); Sodium 137 mmol/L (137-145); Total Bilirubin 0.8 mg/dL (0.2-1.3); Total Protein 6.4 g/dL (6.3-8.2)
[2017-01-09 18:10] LABS: Creatine Kinase 101 U/L (30-135)
[2017-01-09 18:23] LABS: Creatine Kinase MB 1.3 ng/mL (0.0-2.4); Troponin I <0.012 ng/mL (0.000-0.034)
--- NOTE | 2017-01-09 18:24 | XR ---
EXAMINATION TYPE: XR chest 1V portable DATE OF EXAM: 01/09/2017 HISTORY: weakness. REFERENCE: Previous study dated 09/10/2016. FINDINGS: There is chronic appearing elevation of the right hemidiaphragm. Heart size upper limits of normal. Lungs appear clear. Pleural spaces are clear. IMPRESSION: BORDERLINE CARDIOMEGALY.
[2017-01-09] MEDS ORDERED: VANCOMYCIN IV PER PHARMACY 1 EACH MISC MISCELLANE PRN (19:11)
[2017-01-09] MEDS ORDERED: CEFEPIME 1 GM in SODIUM CHLORIDE 0.9% 50 ML IVPB STA (19:15)
[2017-01-09] MEDS ORDERED: NALOXONE 0.4 MG/ML 1 ML VIAL IV PRN (19:19)
[2017-01-09] MEDS ORDERED: MORPHINE SULFATE 4 MG/ML SYRINGE IV PRN (19:19)
[2017-01-09] MEDS ORDERED: VANCOMYCIN 2,000 MG in SODIUM CHLORIDE 0.9% 500 ML IVPB ONE (19:30)
[2017-01-09 21:39] LABS: Glucose,Whole Blood 183 mg/dL (75-99)
[2017-01-09 22:29] VITALS: BMI 50.3
[2017-01-09] MEDS ORDERED: ALBUTEROL NEBULIZED 2.5 MG/3 ML INHALATION PRN (23:11)
[2017-01-10] MEDS: NYSTATIN 100,000 UNIT/GM POWD 15 GM TOPICAL SCH ×3 (06:15→22:23)
[2017-01-10] MEDS: SODIUM CHLORIDE 0.9% 1,000 ML IV SCH ×2 (06:15→22:17)
[2017-01-10 07:27] LABS: Glucose,Whole Blood 127 mg/dL (75-99)
[2017-01-10] MEDS ORDERED: INSULIN GLARGINE 100 UNIT/ML 10 ML VIAL SQ SCH ×2 (08:00→21:00)
[2017-01-10] MEDS: ALLOPURINOL 300 MG TAB PO SCH (08:18)
[2017-01-10] MEDS: INSULIN LISPRO (humaLOG) 300 UNIT/3 ML VIAL SQ SCH ×4 (08:18→22:23)
[2017-01-10] MEDS: DIGOXIN 250 MCG TAB PO SCH (08:18)
[2017-01-10] MEDS: FENOFIBRATE 160 MG TAB PO SCH (08:19)
[2017-01-10] MEDS: MULTIVITAMINS, THERA 1 EACH TAB PO SCH (08:19)
[2017-01-10 08:57] LABS: CH 29.5; CHCM 32.2; HCT 40.1 % (34.0-46.0); HDW 2.55; MCH 27.6 pg (25.0-35.0); RBC 4.36 m/uL (3.80-5.40); RDW 14.4 % (11.5-15.5); WBC 12.7 k/uL (3.8-10.6)
[2017-01-10 09:04] LABS: INR 1.2 (<1.2)
[2017-01-10 09:30] LABS: Potassium 4.1 mmol/L (3.5-5.1)
[2017-01-10 09:58] LABS: Hemoglobin A1C 5.8 % (4.2-6.1)
--- NOTE | 2017-01-10 10:57 | P.HPIM ---
<Erin Elias A - Last Filed: 01/10/17 14:12> History of Present Illness H&P Date: 01/10/17 Chief Complaint: Generalized weakness This is a 71-year-old female one of Dr. Solis with a previous medical history significant for chronic atrial fibrillation on Coumadin, hypertension and hypertensive cardiovascular disease, morbid obesity, obstructive sleep apnea and obesity hypoventilation syndrome, diabetes mellitus type 2, chronic obstructive pulmonary disease as a secondhand smoker as well as exposure [place], gastroesophageal reflux disease, osteoarthritis, diverticulitis, gout, breast cancer status post mastectomy in March 2016 not requiring chemotherapy or radiation therapy under the care of Dr. Wilson, diagnosis of a left-sided brain tumor that has not been biopsied. Patient states that she has had a number of problems since she had a mastectomy done in March. In May she had have a tooth pulled on the left side and has had ongoing problems with numbness to the left side of her face with difficulty chewing and requires her to chew on the right side. She has been biting her cheek on the left. Despite this, patient denies difficulty swallowing. She is also had some chronic sinusitis and "fluid in her ears" and gives history that she was on amoxicillin for 2 months around July of this year and did follow with Dr. Liu. She has also chronic wounds to the abdominal fold and midline area above the pubis that she has been treating with nystatin but states she is only using it once a day or less frequently as she is not able to get the powder in the area. She does state this rash has been going on for more than a year. Patient complains of chills and using 2 blankets at night but denies known fever. She has had generalized weakness that continues to worsen along with body aches in the shoulders back and hips. For the past 3 days she has been unable to get out of bed and she ended up having a large amount of diarrhea stool in the bed which is what causes family to bring her into [facility] emergency center for evaluation. Prior to this episode of diarrhea, patient did not have bowel movement for 3 days. She has not had any bowel movement since. Chest x-ray showed borderline cardiomegaly. Lactic acid was initially 2.2 and repeat was 1.6. GFR 54, albumin 2.9. Patient states that she has not had anything to eat for the past day and half and prior to that not eating and drinking very much. Urinalysis was cloudy and nitrate and leukoesterase were negative and bacteria rare. Patient denies having any dysuria. Farris catheter was placed in the emergency center due to wounds. Wound culture was also obtained that shows gram-negative bacilli, gram-positive cocci and gram-positive bacilli. Patient was given a dose of cefepime x1 and vancomycin in the emergency center and then admitted to the [facility] floor and consult was requested with Dr. Wood from infectious disease. She was also noted to have a lesion on the lower lip which her daughter states has been biopsied and found to be benign. CODE STATUS discussed with the patient and she wishes to be full code but does not want to be on life support for an extended period. Review of Systems All systems: negative Constitutional: Reports chills, Reports fatigue, Reports lethargy, Reports malaise, Reports weakness, Denies fever Eyes: denies blurred vision, denies pain Ears, nose, mouth and throat: Reports mouth pain, Denies dysphagia, Denies headache, Denies sore throat Cardiovascular: Reports decreased exercise tolerance, Reports dyspnea on exertion, Reports shortness of breath, Denies chest pain, Denies lightheadedness , Denies syncope Respiratory: Reports dyspnea, Denies cough, Denies cough with sputum, Denies home oxygen Gastrointestinal: Reports diarrhea, Denies abdominal pain, Denies nausea, Denies vomiting Genitourinary: Denies dysuria, Denies hematuria, Denies urgency, Denies urinary frequency Musculoskeletal: Reports gait dysfunction, Reports low back pain, Reports muscle weakness, Reports myalgias Integumentary: Reports wounds, Denies pruritus, Denies rash Neurological: Reports weakness, Denies numbness Psychiatric: Denies anxiety, Denies depression Endocrine: Denies fatigue, Denies weight change Past Medical History Past Medical History: Atrial Fibrillation, Cancer, Heart Failure, COPD, Diabetes Mellitus, Hypertension, Osteoarthritis (OA), Sleep Apnea/CPAP/BIPAP Additional Past Medical History / Comment(s): ARTHRITIS PAIN KNEES & SHOULDERS. , SLEEP APNEA (DOES NOT USE C-PAP), DIVERTICULITIS., DENIES EDEMA AT THIS TIME. , NEW DIAGNOSIS OF BREAST CANCER., SINUS DRAINAGE. History of Any Multi-Drug Resistant Organisms: None Reported Past Surgical History: Breast Surgery, Section, Cholecystectomy Additional Past Surgical History / Comment(s): 04/02/16 Modified R breast radical mastectomy with sentinel lymph node bx. Other surgical hx: Cataract surgery, tubal ligation, colonoscopy , x3., Right Breast Bx. Past Anesthesia/Blood Transfusion Reactions: No Reported Reaction Past Psychological History: Anxiety, Depression Additional Psychological History / Comment(s): Pt has a tamika who resides with her. She gets around in a power chair. She does not drive, she takes the bus to [place]. Smoking Status: Never smoker Past Alcohol Use History: None Reported Additional Past Alcohol Use History / Comment(s): Patient lives in her own home and her daughter has recently moved in with her and staying there. There are 2 dogs in the home. Patient has a wheelchair, scooter and she is able to ambulate to her wheelchair from her bedroom. Past Drug Use History: None Reported - Past Family History Mother Family Medical History: Congestive Heart Failure (CHF), Diabetes Mellitus Additional Family Medical History / Comment(s): Mother at age 91 from diabetes with history of congestive heart failure. Father Family Medical History: Vascular Disorder Additional Family Medical History / Comment(s): passed with aortic rupture at 73yrs old Sister(s) Family Medical History: Cancer Additional Family Medical History / Comment(s): Patient has one sister with breast cancer and her daughter was diagnosed with cancer of the breast as well ended up with bilateral mastectomies. Brother(s) Family Medical History: Diabetes Mellitus Additional Family Medical History / Comment(s): Patient has one brother with diabetes and osteoarthritis. Son(s) Family Medical History: No Reported History Additional Family Medical History / Comment(s): Patient has 2 boys other sets of twins with no major medical problems. Daughter(s) Family Medical History: No Reported History Additional Family Medical History / Comment(s): Patient has 2 daughters with no major medical problems. Medications and Allergies Home Medications Medication Instructions Recorded Confirmed Type Furosemide [Lasix] 40 mg PO DAILY PRN 09/06/13 01/09/17 History Ramipril 10 mg PO DAILY 09/06/13 01/09/17 History Verapamil HCl [Verelan] 360 mg PO DAILY@1600 09/06/13 01/09/17 History Multivitamins, Thera [Multivitamin 1 tab PO DAILY 05/02/14 01/09/17 History (formulary)] Warfarin [Coumadin] 2.5 mg PO HS 03/26/16 01/09/17 History Digoxin 250 mcg PO DAILY 04/02/16 01/09/17 History Albuterol Nebulized [Ventolin 2.5 mg INHALATION RT-BID PRN 08/12/16 01/09/17 History Nebulized] Allopurinol [Zyloprim] 300 mg PO DAILY 01/09/17 01/09/17 History Amoxicillin 875 mg PO BID 01/09/17 01/09/17 History Fenofibrate Nanocrystallized 145 mg PO DAILY 01/09/17 01/09/17 History [Fenofibrate] INSULIN LISPRO (HumaLOG) [HumaLOG] See Protocol SQ AC-TID 01/09/17 01/09/17 History Insulin Glargine [Lantus] 100 units SQ QAM 01/09/17 01/09/17 History Allergies Allergy/AdvReac Type Severity Reaction Status Date / Time iodine Allergy Swelling Verified 01/09/17 17:20 shellfish derived Allergy Swelling Verified 01/09/17 17:20 acetaminophen [From [place]] AdvReac DIZZINESS Verified 01/09/17 17:20 hydrocodone [From [place]] AdvReac DIZZINESS Verified 01/09/17 17:20 tramadol AdvReac DIZZINESS Verified 01/09/17 17:20 TAPE AdvReac Itching Uncoded 09/10/16 12:27 Physical Exam Vitals: Vital Signs Temp Pulse Pulse Resp BP BP Pulse Ox 01/10/17 07:06 94 L 01/10/17 07:00 97.4 F L 90 16 75/44 97 01/09/17 23:44 99/43 01/09/17 20:53 97.5 F L 85 18 112/79 95 01/09/17 20:11 68 16 152/70 99 01/09/17 19:18 62 18 154/76 97 01/09/17 18:00 153/58 01/09/17 16:49 97.2 F L 91 22 97 Intake and Output 01/09/17 01/10/17 01/10/17 22:59 06:59 14:59 Output Total 200 Balance -200 Output: Urine 200 Other: Weight 133 kg Gen: This is a morbidly obese 71-year-old female. Patient is in bed and appears to be in no acute distress. HEENT: Head is atraumatic, normocephalic. Pupils equal, round. Sclerae is anicteric. Conjunctiva pink. Oral mucous membranes are very dry. Lesions noted on the medical service on the left. Dentition is in poor order. NECK: Supple. No JVD. No lymphadenopathy. No thyromegaly. LUNGS: Clear to auscultation. No wheezes or rhonchi. No intercostal retractions. HEART: Irregular rate and rhythm. Systolic murmur. ABDOMEN: Soft. Bowel sounds are present. No masses. No tenderness. Patient has erythema and wound under the large abdominal apron. Foul order noted EXTREMITIES: No pedal edema. No wounds or erythema to the lower extremities. Dorsalis pedis +2 bilaterally. NEUROLOGICAL: Patient is awake, alert and oriented x3. Cranial nerves 2 through 12 are grossly intact. Speech is slurred the patient is able to answer questions appropriately. Generalized weakness noted. Results CBC & Chem 7: 01/10/17 08:32 01/10/17 08:32 Labs: Abnormal Lab Results - Last 24 Hours (Table) 01/09/17 01/09/17 01/09/17 Range/Units 17:36 17:36 17:36 WBC 11.6 H (3.8-10.6) k/uL MCHC (31.0-37.0) g/dL Neutrophils # 9.7 H (1.3-7.7) k/uL INR (<1.2) VBG pH 7.44 H (7.31-7.41) VBG pCO2 31 L (37-51) mmHg VBG HCO3 21 L (24-28) mmol/L Chloride (98-107) mmol/L Carbon Dioxide 18 L (22-30) mmol/L BUN 35 H (7-17) mg/dL Creatinine (0.52-1.04) mg/dL Glucose 205 H (74-99) mg/dL POC Glucose (mg/dL) (75-99) mg/dL Plasma Lactic Acid Jose Guadalupe (0.7-2.0) mmol/L Albumin 2.9 L (3.5-5.0) g/dL Urine Appearance (Clear) Urine Protein (Negative) Urine Glucose (UA) (Negative) Urine Ketones (Negative) Urine Bacteria (None) /hpf Hyaline Casts (0-2) /lpf Urine Mucus (None) /hpf 01/09/17 01/09/17 01/09/17 Range/Units 17:36 17:41 21:11 WBC (3.8-10.6) k/uL MCHC (31.0-37.0) g/dL Neutrophils # (1.3-7.7) k/uL INR (<1.2) VBG pH (7.31-7.41) VBG pCO2 (37-51) mmHg VBG HCO3 (24-28) mmol/L Chloride (98-107) mmol/L Carbon Dioxide (22-30) mmol/L BUN (7-17) mg/dL Creatinine (0.52-1.04) mg/dL Glucose (74-99) mg/dL POC Glucose (mg/dL) 183 H (75-99) mg/dL Plasma Lactic Acid Jose Guadalupe 2.2 H* (0.7-2.0) mmol/L Albumin (3.5-5.0) g/dL Urine Appearance Cloudy H (Clear) Urine Protein Trace H (Negative) Urine Glucose (UA) 1+ H (Negative) Urine Ketones 1+ H (Negative) Urine Bacteria Rare H (None) /hpf Hyaline Casts 4 H (0-2) /lpf Urine Mucus Rare H (None) /hpf 01/10/17 01/10/17 01/10/17 Range/Units 07:14 08:32 08:32 WBC 12.7 H (3.8-10.6) k/uL MCHC 30.0 L (31.0-37.0) g/dL Neutrophils # (1.3-7.7) k/uL INR 1.2 H (<1.2) VBG pH (7.31-7.41) VBG pCO2 (37-51) mmHg VBG HCO3 (24-28) mmol/L Chloride (98-107) mmol/L Carbon Dioxide (22-30) mmol/L BUN (7-17) mg/dL Creatinine (0.52-1.04) mg/dL Glucose (74-99) mg/dL POC Glucose (mg/dL) 127 H (75-99) mg/dL Plasma Lactic Acid Jose Guadalupe (0.7-2.0) mmol/L Albumin (3.5-5.0) g/dL Urine Appearance (Clear) Urine Protein (Negative) Urine Glucose (UA) (Negative) Urine Ketones (Negative) Urine Bacteria (None) /hpf Hyaline Casts (0-2) /lpf Urine Mucus (None) /hpf 01/10/17 Range/Units 08:32 WBC (3.8-10.6) k/uL MCHC (31.0-37.0) g/dL Neutrophils # (1.3-7.7) k/uL INR (<1.2) VBG pH (7.31-7.41) VBG pCO2 (37-51) mmHg VBG HCO3 (24-28) mmol/L Chloride 108 H (98-107) mmol/L Carbon Dioxide 18 L (22-30) mmol/L BUN 43 H (7-17) mg/dL Creatinine 1.29 H (0.52-1.04) mg/dL Glucose 139 H (74-99) mg/dL POC Glucose (mg/dL) (75-99) mg/dL Plasma Lactic Acid Jose Guadalupe (0.7-2.0) mmol/L Albumin (3.5-5.0) g/dL Urine Appearance (Clear) Urine Protein (Negative) Urine Glucose (UA) (Negative) Urine Ketones (Negative) Urine Bacteria (None) /hpf Hyaline Casts (0-2) /lpf Urine Mucus (None) /hpf Microbiology - Last 24 Hours (Table) 01/09/17 17:36 Gram Stain - Preliminary Abdomen Wound Culture - Preliminary 01/09/17 17:36 Urine Culture - Preliminary Urine,Catheterized Thrombosis Risk Factor Assmnt - DVT/VTE Prophylaxis DVT/VTE Prophylaxis: Pharmacologic Prophylaxis ordered - Choose All That Apply Any of the Below Risk Factors Present?: Yes Each Factor Represents 1 point: Medical pt on bed rest Each Risk Factor Represents 2 Points: Age 61-74 years, Patient confined to bed Thrombosis Risk Factor Assessment Total Risk Factor Score: 5 Thrombosis Risk Factor Assessment Level: High Risk Assessment and Plan Plan: 1. Abdominal wound and cellulitis. Patient has been seen by Dr. Wood with recommendations to continue vancomycin and added in fluconazole and Unasyn. Local wound care per Dr. Wood. Farris catheter will be removed in the morning. 2. Left facial weakness since tooth was extracted in May. Possible nerve damage causing weakness and numbness. Consult with speech therapy and dietitian regarding diet option and rule out dysphagia. Patient currently denies difficulty swallowing. 3. Left intracranial mass. Patient is to have this followed up as an outpatient. 4. Generalized weakness secondary to intracranial mass. Consult with Dr Wilson. Patient has had outpatient PET scan and MRI of the brain done in December. She is to follow up with a neurosurgeon for biopsy. 5. History of right-sided breast cancer status post mastectomy without radiation or chemotherapy under the care of Dr. Wilson. Consult with Dr. Wilson. 6. Chronic atrial fibrillation. Coumadin, digoxin, verapamil continued. Monitor INR. 7. Hypertension, hypertensive cardiovascular disease. Continue verapamil, ramipril. 8. Diabetes mellitus type 2 insulin requiring. Continue Lantus at reduced amount along with Humalog scale before meals and at bedtime. 9. Generalized debilitation. Consult with PT, OT, social work for subacute rehab. 10. Incontinence of stool secondary to generalized debilitation. 11. Obstructive sleep apnea with obesity hypoventilation syndrome. Patient does not use CPAP. 12. Gout. Continue allopurinol. 13. Chronic diastolic heart failure without exacerbation. Lasix on hold for now Patient will be admitted to the hospital for a minimum of 2 night stay. Discharge plan: Most likely subacute rehab Impression and plan of care have been directed as dictated by the signing physician. Erin Elias nurse practitioner acting as scribe for signing physician. <Alcides Kwong - Last Filed: 01/11/17 15:36> Physical Exam Vitals: Vital Signs Temp Pulse Resp BP BP Pulse Ox 01/11/17 08:00 16 01/11/17 07:00 97.1 F L 72 16 116/66 93 L 01/10/17 23:00 97.4 F L 90 20 102/49 95 01/10/17 19:12 98 Intake and Output 01/11/17 01/11/17 01/11/17 06:59 14:59 22:59 Intake Total 100 200 Output Total 2100 800 Balance -1999600 Intake: Intake, IV Titration 200 Amount Ampicillin-Sulbactam 3 gm 100 In Sodium Chloride 0.9% 100 ml @ 100 mls/hr IVPB Q8HR [facility] Rx#:[id number] Sodium Chloride 0.9% 1, 100 000 ml @ 50 mls/hr IV . Q20H [facility] Rx#:[id number] Oral 100 Output: Urine 2100 800 Uretheral (Farris) 1000 800 Other: Voiding Method Indwelling Catheter # Bowel Movements 1 Weight 110 kg Results CBC & Chem 7: 01/11/17 08:07 01/11/17 08:07 Labs: Abnormal Lab Results - Last 24 Hours (Table) 01/10/17 01/10/17 01/11/17 Range/Units 17:12 22:10 07:05 WBC (3.8-10.6) k/uL Hgb (11.4-16.0) gm/dL PT (9.0-12.0) sec INR (<1.2) Chloride (98-107) mmol/L Carbon Dioxide (22-30) mmol/L BUN (7-17) mg/dL Glucose (74-99) mg/dL POC Glucose (mg/dL) 123 H 212 H 179 H (75-99) mg/dL 01/11/17 01/11/17 01/11/17 Range/Units 08:07 08:07 08:07 WBC 11.8 H (3.8-10.6) k/uL Hgb 11.3 L (11.4-16.0) gm/dL PT 12.1 H (9.0-12.0) sec INR 1.2 H (<1.2) Chloride 110 H (98-107) mmol/L Carbon Dioxide 17 L (22-30) mmol/L BUN 35 H (7-17) mg/dL Glucose 180 H (74-99) mg/dL POC Glucose (mg/dL) (75-99) mg/dL 01/11/17 Range/Units 11:51 WBC (3.8-10.6) k/uL Hgb (11.4-16.0) gm/dL PT (9.0-12.0) sec INR (<1.2) Chloride (98-107) mmol/L Carbon Dioxide (22-30) mmol/L BUN (7-17) mg/dL Glucose (74-99) mg/dL POC Glucose (mg/dL) 214 H (75-99) mg/dL Microbiology - Last 24 Hours (Table) 01/09/17 17:36 Gram Stain - Preliminary Abdomen Wound Culture - Preliminary Gram Neg Bacilli Group D Enterococcus
[2017-01-10 12:30] LABS: Glucose,Whole Blood 146 mg/dL (75-99)
--- NOTE | 2017-01-10 14:30 | XR ---
EXAMINATION TYPE: XR abdomen 1V DATE OF EXAM: 01/10/2017 2:08 PM CLINICAL HISTORY: Constipation per order. TECHNIQUE: 3 portable supine views of the abdomen are obtained. COMPARISON: PET/CT November 23, 2016 FINDINGS: Exam is suboptimal due to portable technique and patient's large body habitus. Scattered ga s is seen in non-distended small bowel loops. Gas and fecal material is seen in non-distended colon. Some prominence of fecal material in the rectum is seen. Surgical clips overlie the right breast. The re is prominent spurring of the thoracolumbar junction noted. IMPRESSION: Overall nonobstructive bowel gas pattern. Moderate focal rectal fecal stasis noted.
--- NOTE | 2017-01-10 14:39 | P.CONS ---
History of Present Illness - Reason for Consult Consult date: 01/10/17 Abdominal wounds, cellulitis - History of Present Illness This is a 71-year-old female with a previous medical history significant for chronic atrial fibrillation on Coumadin, hypertension and hypertensive cardiovascular disease, morbid obesity, obstructive sleep apnea and obesity hypoventilation syndrome, diabetes mellitus type 2, chronic obstructive pulmonary disease as a secondhand smoker as well as exposure [place], gastroesophageal reflux disease, osteoarthritis, diverticulitis, gout, breast cancer status post mastectomy in March 2016 not requiring chemotherapy or radiation therapy under the care of Dr. Wilson, diagnosis of a left-sided brain tumor that has not been biopsied. Patient states that she has had a number of problems since she had a mastectomy done in March. In May she had have a tooth pulled on the left side and has had ongoing problems with numbness to the left side of her face with difficulty chewing and requires her to chew on the right side. She has been biting her cheek on the left. Despite this, patient denies difficulty swallowing. She is also had some chronic sinusitis and "fluid in her ears" and gives history that she was on amoxicillin for 2 months around July of this year and did follow with Dr. Liu. She has also chronic wounds to the abdominal fold and midline area above the pubis that she has been treating with nystatin but states she is only using it once a day or less frequently as she is not able to get the powder in the area. She does state this rash has been going on for more than a year. Patient complains of chills and using 2 blankets at night but denies known fever. She has had generalized weakness that continues to worsen along with body aches in the shoulders back and hips. For the past 3 days she has been unable to get out of bed and she ended up having a large amount of diarrhea stool in the bed which is what causes family to bring her into [facility] emergency center for evaluation. Prior to this episode of diarrhea, patient did not have bowel movement for 3 days. She has not had any bowel movement since. Chest x-ray showed borderline cardiomegaly. Lactic acid was initially 2.2 and repeat was 1.6. GFR 54, albumin 2.9. Patient states that she has not had anything to eat for the past day and half and prior to that not eating and drinking very much. Urinalysis was cloudy and nitrate and leukoesterase were negative and bacteria rare. Patient denies having any dysuria. Farris catheter was placed in the emergency center due to wounds. Wound culture was also obtained that shows gram-negative bacilli, gram-positive cocci and gram-positive bacilli. Patient was given a dose of cefepime x1 and vancomycin in the emergency center and then admitted to the [facility] floor. She was also noted to have a lesion on the lower lip which her daughter states has been biopsied and found to be benign. Review of Systems All systems: negative Constitutional: Reports anorexia, Reports chills, Reports fatigue, Reports lethargy, Reports malaise, Reports poor appetite, Reports weakness, Denies fever Eyes: denies blurred vision, denies pain Ears, nose, mouth and throat: Reports dental pain, Reports mouth pain, Denies dysphagia, Denies headache, Denies sore throat, Denies vertigo Cardiovascular: Reports decreased exercise tolerance, Reports dyspnea on exertion, Denies chest pain, Denies leg edema, Denies lightheadedness, Denies shortness of breath, Denies syncope Respiratory: Reports dyspnea, Denies cough, Denies cough with sputum, Denies excessive sputum, Denies hemoptysis, Denies home oxygen Gastrointestinal: Reports diarrhea, Denies abdominal pain, Denies nausea, Denies vomiting Genitourinary: Denies dysuria, Denies hematuria, Denies urgency, Denies urinary frequency Musculoskeletal: Reports gait dysfunction, Reports myalgias Integumentary: Denies pruritus, Denies rash Neurological: Reports weakness, Denies numbness Psychiatric: Denies anxiety, Denies depression Endocrine: Denies fatigue, Denies weight change Past Medical History Past Medical History: Atrial Fibrillation, Cancer, Heart Failure, COPD, Diabetes Mellitus, Hypertension, Osteoarthritis (OA), Sleep Apnea/CPAP/BIPAP Additional Past Medical History / Comment(s): ARTHRITIS PAIN KNEES & SHOULDERS. , SLEEP APNEA (DOES NOT USE C-PAP), DIVERTICULITIS., DENIES EDEMA AT THIS TIME. , NEW DIAGNOSIS OF BREAST CANCER., SINUS DRAINAGE. History of Any Multi-Drug Resistant Organisms: None Reported Past Surgical History: Breast Surgery, Section, Cholecystectomy Additional Past Surgical History / Comment(s): 04/02/16 Modified R breast radical mastectomy with sentinel lymph node bx. Other surgical hx: Cataract surgery, tubal ligation, colonoscopy , x3., Right Breast Bx. Past Anesthesia/Blood Transfusion Reactions: No Reported Reaction Past Psychological History: Anxiety, Depression Additional Psychological History / Comment(s): Pt has a tamika who resides with her. She gets around in a power chair. She does not drive, she takes the bus to [employer]. Smoking Status: Never smoker Past Alcohol Use History: None Reported Past Drug Use History: None Reported - Past Family History Mother Family Medical History: Congestive Heart Failure (CHF), Diabetes Mellitus Father Family Medical History: Vascular Disorder Additional Family Medical History / Comment(s): passed with aortic rupture at 73yrs old Sister(s) Family Medical History: Cancer Additional Family Medical History / Comment(s): SISTER AND SISTERS DAUGHTER- CANCER Brother(s) Family Medical History: Diabetes Mellitus Son(s) Family Medical History: No Reported History Daughter(s) Family Medical History: No Reported History Medications and Allergies Home Medications Medication Instructions Recorded Confirmed Type Furosemide [Lasix] 40 mg PO DAILY PRN 09/06/13 01/09/17 History Ramipril 10 mg PO DAILY 09/06/13 01/09/17 History Verapamil HCl [Verelan] 360 mg PO DAILY@1600 09/06/13 01/09/17 History Multivitamins, Thera [Multivitamin 1 tab PO DAILY 05/02/14 01/09/17 History (formulary)] Warfarin [Coumadin] 2.5 mg PO HS 03/26/16 01/09/17 History Digoxin 250 mcg PO DAILY 04/02/16 01/09/17 History Albuterol Nebulized [Ventolin 2.5 mg INHALATION RT-BID PRN 08/12/16 01/09/17 History Nebulized] Allopurinol [Zyloprim] 300 mg PO DAILY 01/09/17 01/09/17 History Amoxicillin 875 mg PO BID 01/09/17 01/09/17 History Fenofibrate Nanocrystallized 145 mg PO DAILY 01/09/17 01/09/17 History [Fenofibrate] INSULIN LISPRO (HumaLOG) [HumaLOG] See Protocol SQ AC-TID 01/09/17 01/09/17 History Insulin Glargine [Lantus] 100 units SQ QAM 01/09/17 01/09/17 History Allergies Allergy/AdvReac Type Severity Reaction Status Date / Time iodine Allergy Swelling Verified 01/09/17 17:20 shellfish derived Allergy Swelling Verified 01/09/17 17:20 acetaminophen [From [place]] AdvReac DIZZINESS Verified 01/09/17 17:20 hydrocodone [From [place]] AdvReac DIZZINESS Verified 01/09/17 17:20 tramadol AdvReac DIZZINESS Verified 01/09/17 17:20 TAPE AdvReac Itching Uncoded 09/10/16 12:27 Physical Exam Vitals: Vital Signs Temp Pulse Pulse Resp BP BP Pulse Ox 01/10/17 07:06 94 L 01/10/17 07:00 97.4 F L 90 16 75/44 97 01/09/17 23:44 99/43 01/09/17 20:53 97.5 F L 85 18 112/79 95 01/09/17 20:11 68 16 152/70 99 01/09/17 19:18 62 18 154/76 97 01/09/17 18:00 153/58 01/09/17 16:49 97.2 F L 91 22 97 Intake and Output 01/09/17 01/10/17 01/10/17 22:59 06:59 14:59 Output Total 200 Balance -200 Output: Urine 200 Other: Weight 133 kg Gen: This is a morbidly obese 71-year-old female. Patient is in bed and appears to be in no acute distress. HEENT: Head is atraumatic, normocephalic. Pupils equal, round. Sclerae is anicteric. Conjunctiva pink. Oral mucous membranes are very dry. Lesions noted on the medical service on the left. Dentition is in poor order. NECK: Supple. No JVD. No lymphadenopathy. No thyromegaly. LUNGS: Clear to auscultation. No wheezes or rhonchi. No intercostal retractions. HEART: Irregular rate and rhythm. Systolic murmur. ABDOMEN: Soft. Bowel sounds are present. No masses. No tenderness. Patient has erythema and wound under the large abdominal apron. Foul order noted. Farris catheter in place. EXTREMITIES: No pedal edema. No wounds or erythema to the lower extremities. Dorsalis pedis +2 bilaterally. NEUROLOGICAL: Patient is awake, alert and oriented x3. Cranial nerves 2 through 12 are grossly intact. Speech is slurred the patient is able to answer questions appropriately. Generalized weakness noted. Results Results: Laboratory Results WBC 12.7 k/uL (3.8-10.6) H 01/10/17 08:32 RBC 4.36 m/uL (3.80-5.40) 01/10/17 08:32 Hgb 12.0 gm/dL (11.4-16.0) 01/10/17 08:32 Hct 40.1 % (34.0-46.0) 01/10/17 08:32 MCV 92.0 fL (80.0-100.0) 01/10/17 08:32 MCH 27.6 pg (25.0-35.0) 01/10/17 08:32 MCHC 30.0 g/dL (31.0-37.0) L 01/10/17 08:32 RDW 14.4 % (11.5-15.5) 01/10/17 08:32 Plt Count 330 k/uL (150-450) 01/10/17 08:32 Neutrophils % 84 % 01/09/17 17:36 Lymphocytes % 9 % 01/09/17 17:36 Monocytes % 5 % 01/09/17 17:36 Eosinophils % 1 % 01/09/17 17:36 Basophils % 0 % 01/09/17 17:36 Neutrophils # 9.7 k/uL (1.3-7.7) H 01/09/17 17:36 Lymphocytes # 1.1 k/uL (1.0-4.8) 01/09/17 17:36 Monocytes # 0.6 k/uL (0-1.0) 01/09/17 17:36 Eosinophils # 0.1 k/uL (0-0.7) 01/09/17 17:36 Basophils # 0.0 k/uL (0-0.2) 01/09/17 17:36 PT 12.0 sec (9.0-12.0) 01/10/17 08:32 INR 1.2 (<1.2) H 01/10/17 08:32 VBG pH 7.44 (7.31-7.41) H 01/09/17 17:36 VBG pCO2 31 mmHg (37-51) L 01/09/17 17:36 VBG HCO3 21 mmol/L (24-28) L 01/09/17 17:36 Sodium 140 mmol/L (137-145) 01/10/17 08:32 Potassium 4.1 mmol/L (3.5-5.1) 01/10/17 08:32 Chloride 108 mmol/L (98-107) H 01/10/17 08:32 Carbon Dioxide 18 mmol/L (22-30) L 01/10/17 08:32 Anion Gap 14 mmol/L 01/10/17 08:32 BUN 43 mg/dL (7-17) H 01/10/17 08:32 Creatinine 1.29 mg/dL (0.52-1.04) H 01/10/17 08:32 Est GFR (MDRD) Af Amer 49 (>60 ml/min/1.73 sqM) 01/10/17 08:32 Est GFR (MDRD) Non-Af 41 (>60 ml/min/1.73 sqM) 01/10/17 08:32 Glucose 139 mg/dL (74-99) H 01/10/17 08:32 POC Glucose (mg/dL) 146 mg/dL (75-99) H 01/10/17 12:23 POC Glu [facility] Barby Crandall 01/10/17 12:[address] Glu mg/dL 120 mg/dL 01/09/17 17:36 Hemoglobin A1c 5.8 % (4.2-6.1) 01/09/17 17:36 Lactic Ac Sepsis Rflx Y 01/09/17 18:23 Plasma Lactic Acid Jose Guadalupe 1.6 mmol/L (0.7-2.0) 01/09/17 22:09 Calcium 10.0 mg/dL (8.4-10.2) 01/10/17 08:32 Magnesium 1.6 mg/dL (1.6-2.3) 01/09/17 17:36 Total Bilirubin 0.8 mg/dL (0.2-1.3) 01/09/17 17:36 AST 29 U/L (14-36) 01/09/17 17:36 ALT 33 U/L (9-52) 01/09/17 17:36 Alkaline Phosphatase 78 U/L (38-126) 01/09/17 17:36 Total Creatine Kinase 101 U/L (30-135) 01/09/17 17:36 CK-MB (CK-2) 1.3 ng/mL (0.0-2.4) 01/09/17 17:36 CK-MB (CK-2) Rel Index 1.3 01/09/17 17:36 Troponin I <0.012 ng/mL (0.000-0.034) 01/09/17 17:36 NT-Pro-B Natriuret Pep 1700 pg/mL 01/09/17 17:36 Total Protein 6.4 g/dL (6.3-8.2) 01/09/17 17:36 Albumin 2.9 g/dL (3.5-5.0) L 01/09/17 17:36 Urine Color Yellow 01/09/17 17:36 Urine Appearance Cloudy (Clear) H 01/09/17 17:36 Urine pH 5.5 (5.0-8.0) 01/09/17 17:36 Ur Specific [place] 1.016 (1.001-1.035) 01/09/17 17:36 Urine Protein Trace (Negative) H 01/09/17 17:36 Urine Glucose (UA) 1+ (Negative) H 01/09/17 17:36 Urine Ketones 1+ (Negative) H 01/09/17 17:36 Urine Blood Negative (Negative) 01/09/17 17:36 Urine Nitrite Negative (Negative) 01/09/17 17:36 Urine Bilirubin Negative (Negative) 01/09/17 17:36 Urine Urobilinogen 6.0 mg/dL (<2.0) 01/09/17 17:36 Ur Leukocyte Esterase Negative (Negative) 01/09/17 17:36 Urine RBC 1 /hpf (0-5) 01/09/17 17:36 Urine WBC 1 /hpf (0-5) 01/09/17 17:36 Ur Squamous Epith Cells 3 /hpf (0-4) 01/09/17 17:36 Urine Bacteria Rare /hpf (None) H 01/09/17 17:36 Hyaline Casts 4 /lpf (0-2) H 01/09/17 17:36 Urine Mucus Rare /hpf (None) H 01/09/17 17:36 CBC & Chem 7: 01/10/17 08:32 01/10/17 08:32 Labs: Abnormal Lab Results - Last 24 Hours (Table) 01/09/17 01/09/17 01/09/17 Range/Units 17:36 17:36 17:36 WBC 11.6 H (3.8-10.6) k/uL MCHC (31.0-37.0) g/dL Neutrophils # 9.7 H (1.3-7.7) k/uL INR (<1.2) VBG pH 7.44 H (7.31-7.41) VBG pCO2 31 L (37-51) mmHg VBG HCO3 21 L (24-28) mmol/L Chloride (98-107) mmol/L Carbon Dioxide 18 L (22-30) mmol/L BUN 35 H (7-17) mg/dL Creatinine (0.52-1.04) mg/dL Glucose 205 H (74-99) mg/dL POC Glucose (mg/dL) (75-99) mg/dL Plasma Lactic Acid Jose Guadalupe (0.7-2.0) mmol/L Albumin 2.9 L (3.5-5.0) g/dL Urine Appearance (Clear) Urine Protein (Negative) Urine Glucose (UA) (Negative) Urine Ketones (Negative) Urine Bacteria (None) /hpf Hyaline Casts (0-2) /lpf Urine Mucus (None) /hpf 01/09/17 01/09/17 01/09/17 Range/Units 17:36 17:41 21:11 WBC (3.8-10.6) k/uL MCHC (31.0-37.0) g/dL Neutrophils # (1.3-7.7) k/uL INR (<1.2) VBG pH (7.31-7.41) VBG pCO2 (37-51) mmHg VBG HCO3 (24-28) mmol/L Chloride (98-107) mmol/L Carbon Dioxide (22-30) mmol/L BUN (7-17) mg/dL Creatinine (0.52-1.04) mg/dL Glucose (74-99) mg/dL POC Glucose (mg/dL) 183 H (75-99) mg/dL Plasma Lactic Acid Jose Guadalupe 2.2 H* (0.7-2.0) mmol/L Albumin (3.5-5.0) g/dL Urine Appearance Cloudy H (Clear) Urine Protein Trace H (Negative) Urine Glucose (UA) 1+ H (Negative) Urine Ketones 1+ H (Negative) Urine Bacteria Rare H (None) /hpf Hyaline Casts 4 H (0-2) /lpf Urine Mucus Rare H (None) /hpf 01/10/17 01/10/17 01/10/17 Range/Units 07:14 08:32 08:32 WBC 12.7 H (3.8-10.6) k/uL MCHC 30.0 L (31.0-37.0) g/dL Neutrophils # (1.3-7.7) k/uL INR 1.2 H (<1.2) VBG pH (7.31-7.41) VBG pCO2 (37-51) mmHg VBG HCO3 (24-28) mmol/L Chloride (98-107) mmol/L Carbon Dioxide (22-30) mmol/L BUN (7-17) mg/dL Creatinine (0.52-1.04) mg/dL Glucose (74-99) mg/dL POC Glucose (mg/dL) 127 H (75-99) mg/dL Plasma Lactic Acid Jose Guadalupe (0.7-2.0) mmol/L Albumin (3.5-5.0) g/dL Urine Appearance (Clear) Urine Protein (Negative) Urine Glucose (UA) (Negative) Urine Ketones (Negative) Urine Bacteria (None) /hpf Hyaline Casts (0-2) /lpf Urine Mucus (None) /hpf 01/10/17 Range/Units 08:32 WBC (3.8-10.6) k/uL MCHC (31.0-37.0) g/dL Neutrophils # (1.3-7.7) k/uL INR (<1.2) VBG pH (7.31-7.41) VBG pCO2 (37-51) mmHg VBG HCO3 (24-28) mmol/L Chloride 108 H (98-107) mmol/L Carbon Dioxide 18 L (22-30) mmol/L BUN 43 H (7-17) mg/dL Creatinine 1.29 H (0.52-1.04) mg/dL Glucose 139 H (74-99) mg/dL POC Glucose (mg/dL) (75-99) mg/dL Plasma Lactic Acid Jose Guadalupe (0.7-2.0) mmol/L Albumin (3.5-5.0) g/dL Urine Appearance (Clear) Urine Protein (Negative) Urine Glucose (UA) (Negative) Urine Ketones (Negative) Urine Bacteria (None) /hpf Hyaline Casts (0-2) /lpf Urine Mucus (None) /hpf Microbiology - Last 24 Hours (Table) 01/09/17 17:36 Gram Stain - Preliminary Abdomen Wound Culture - Preliminary 01/09/17 17:36 Urine Culture - Preliminary Urine,Catheterized Assessment and Plan Plan: This is a 71-year-old female who presented to hospital with abdominal wound and cellulitis with known history of breast cancer diagnosed in status post mastectomy as well as a known left intracranial mass. Patient presented with generalized weakness with inability to get out of bed for the past 3 days, body aches. Patient will be placed on Unasyn and vancomycin continued. Wound culture is in progress as well as urine culture. Continue supportive care. Further recommendations as patient progresses. The above dictated assessment and findings were discussed with Dr. Wood. The impression and plan of care have been directed as dictated. Erin Elias nurse practitioner acting as scribe for Dr. Wood.
[2017-01-10] MEDS ORDERED: VANCOMYCIN 2,000 MG in SODIUM CHLORIDE 0.9% 500 ML IVPB SCH (16:00)
[2017-01-10] MEDS ORDERED: VERAPAMIL SR 180 MG TABLET.ER PO SCH (16:00)
[2017-01-10] MEDS: FLUCONAZOLE 100 MG TAB PO SCH (16:45)
[2017-01-10] MEDS: AMPICILLIN-SULBACTAM 3 GM in SODIUM CHLORIDE 0.9% 100 ML IVPB SCH ×2 (16:50→23:57)
--- NOTE | 2017-01-10 17:12 | P.CONS ---
History of Present Illness - Reason for Consult Consult date: 01/10/17 Hx triple negative breast cancer, brain mass Requesting physician: Erin Elias - Chief Complaint weakness - History of Present Illness Ms. Nunn is a very pleasant 71-year-old female patient who has seen Dr. Wilson in the past. Patient's history includes right mastectomy with removal of 8 lymph nodes back in March 2016. Patient had a pathologically staged T2 N0 M0 triple negative breast cancer diagnosed. Patient received no adjuvant treatment. In August [address] of the brain for headache that did reveal a left temporal mass mass. Was recommended patient have further workup. Patient has been seen by rheumatology as well as neurology. PET scan done in November showed nonspecific but still suspicious uptake. Patient had an MRI of the brain December 06 which did discuss progression in the size of the left temporal mass. Patient was encouraged to follow-up and have a biopsy but unfortunately patient has not been able to get transportation to do so. Patient is now presenting from home with progressive severe weakness to the point that she can no longer care for herself or walk. Patient states right-sided facial paralysis, denying blurred or double vision at this time, occasional headaches, she is having some difficulty swallowing, denies choking or coughing, she is on Coumadin for atrial fibrillation, denies any bleeding, she has some skin infections on the abdomen and have been being treated, she has a Farris catheter inserted but denies prior dysuria or hematuria, no diarrhea or constipation, patient activity levels have decreased, she is feeling very weak, sometimes dizzy when she changes positions, appetite has been poor. Review of Systems 10 point ROS as stated in HPI Past Medical History Past Medical History: Atrial Fibrillation, Cancer, Heart Failure, COPD, Diabetes Mellitus, Hypertension, Osteoarthritis (OA), Sleep Apnea/CPAP/BIPAP Additional Past Medical History / Comment(s): ARTHRITIS PAIN KNEES & SHOULDERS. , SLEEP APNEA (DOES NOT USE C-PAP), DIVERTICULITIS., DENIES EDEMA AT THIS TIME. , NEW DIAGNOSIS OF BREAST CANCER., SINUS DRAINAGE. History of Any Multi-Drug Resistant Organisms: None Reported Past Surgical History: Breast Surgery, Section, Cholecystectomy Additional Past Surgical History / Comment(s): 04/02/16 Modified R breast radical mastectomy with sentinel lymph node bx. Other surgical hx: Cataract surgery, tubal ligation, colonoscopy , x3., Right Breast Bx. Past Anesthesia/Blood Transfusion Reactions: No Reported Reaction Past Psychological History: Anxiety, Depression Additional Psychological History / Comment(s): Pt has a tamika who resides with her. She gets around in a power chair. She does not drive, [place] the [place]. Smoking Status: Never smoker Past Alcohol Use History: None Reported Past Drug Use History: None Reported - Past Family History Mother Family Medical History: Congestive Heart Failure (CHF), Diabetes Mellitus Additional Family Medical History / Comment(s): Mother at age 91 from diabetes with history of congestive heart failure. Father Family Medical History: Vascular Disorder Additional Family Medical History / Comment(s): passed with aortic rupture at 73yrs old Sister(s) Family Medical History: Cancer Additional Family Medical History / Comment(s): SISTER AND SISTERS DAUGHTER- CANCER Brother(s) Family Medical History: Diabetes Mellitus Additional Family Medical History / Comment(s): Patient has one brother with diabetes and osteoarthritis. Son(s) Family Medical History: No Reported History Additional Family Medical History / Comment(s): Patient has 2 boys other sets of twins with no major medical problems. Daughter(s) Family Medical History: No Reported History Additional Family Medical History / Comment(s): Patient has 2 daughters with no major medical problems. Medications and Allergies Home Medications Medication Instructions Recorded Confirmed Type Furosemide [Lasix] 40 mg PO DAILY PRN 09/06/13 01/09/17 History Ramipril 10 mg PO DAILY 09/06/13 01/09/17 History Verapamil HCl [Verelan] 360 mg PO DAILY@1600 09/06/13 01/09/17 History Multivitamins, Thera [Multivitamin 1 tab PO DAILY 05/02/14 01/09/17 History (formulary)] Warfarin [Coumadin] 2.5 mg PO HS 03/26/16 01/09/17 History Digoxin 250 mcg PO DAILY 04/02/16 01/09/17 History Albuterol Nebulized [Ventolin 2.5 mg INHALATION RT-BID PRN 08/12/16 01/09/17 History Nebulized] Allopurinol [Zyloprim] 300 mg PO DAILY 01/09/17 01/09/17 History Amoxicillin 875 mg PO BID 01/09/17 01/09/17 History Fenofibrate Nanocrystallized 145 mg PO DAILY 01/09/17 01/09/17 History [Fenofibrate] INSULIN LISPRO (HumaLOG) [HumaLOG] See Protocol SQ AC-TID 01/09/17 01/09/17 History Insulin Glargine [Lantus] 100 units SQ QAM 01/09/17 01/09/17 History Allergies Allergy/AdvReac Type Severity Reaction Status Date / Time iodine Allergy Swelling Verified 01/09/17 17:20 shellfish derived Allergy Swelling Verified 01/09/17 17:20 acetaminophen [From [place]] AdvReac DIZZINESS Verified 01/09/17 17:20 hydrocodone [From [place]] AdvReac DIZZINESS Verified 01/09/17 17:20 tramadol AdvReac DIZZINESS Verified 01/09/17 17:20 TAPE AdvReac Itching Uncoded 09/10/16 12:27 Physical Exam Vitals: Vital Signs Temp Pulse Pulse Resp BP BP Pulse Ox 01/10/17 14:17 96.9 F L 76 20 107/54 92 L 01/10/17 07:06 94 L 01/10/17 07:00 97.4 F L 90 16 75/44 97 01/09/17 23:44 99/43 01/09/17 20:53 97.5 F L 85 18 112/79 95 01/09/17 20:11 68 16 152/70 99 01/09/17 19:18 62 18 154/76 97 01/09/17 18:00 153/58 01/09/17 16:49 97.2 F L 91 22 97 Intake and Output 01/10/17 01/10/17 01/10/17 06:59 14:59 22:59 Intake Total 320 Output Total 200 Balance -200 320 Intake: Oral 320 Output: Urine 200 Other: Weight 133 kg Patient Weight 01/11/17 06:59 Weight 133 kg - Constitutional General appearance: cooperative, morbidly obese, no acute distress - EENT Eyes: anicteric sclerae, EOMI, PERRLA, normal appearance ENT: hearing grossly normal, normal oropharynx - Neck Neck: no lymphadenopathy - Respiratory Respiratory: bilateral: diminished - Cardiovascular Rhythm: irregularly irregular Heart sounds: normal: S1, S2 leg Peripheral Edema: bilateral: None - Gastrointestinal large pannus, cannot appreciate organomegaly General gastrointestinal: normal bowel sounds - Integumentary Integumentary: pale - Neurologic Neurologic: CNII-XII intact - Musculoskeletal Musculoskeletal: generalized weakness, strength equal bilaterally - Psychiatric Psychiatric: A&O x's 3, appropriate affect, intact judgment & insight Results CBC & Chem 7: 01/10/17 08:32 01/10/17 08:32 Labs: Abnormal Lab Results - Last 24 Hours (Table) 01/09/17 01/09/17 01/09/17 Range/Units 17:36 17:36 17:36 WBC 11.6 H (3.8-10.6) k/uL MCHC (31.0-37.0) g/dL Neutrophils # 9.7 H (1.3-7.7) k/uL INR (<1.2) VBG pH 7.44 H (7.31-7.41) VBG pCO2 31 L (37-51) mmHg VBG HCO3 21 L (24-28) mmol/L Chloride (98-107) mmol/L Carbon Dioxide 18 L (22-30) mmol/L BUN 35 H (7-17) mg/dL Creatinine (0.52-1.04) mg/dL Glucose 205 H (74-99) mg/dL POC Glucose (mg/dL) (75-99) mg/dL Plasma Lactic Acid Jose Guadalupe (0.7-2.0) mmol/L Albumin 2.9 L (3.5-5.0) g/dL Urine Appearance (Clear) Urine Protein (Negative) Urine Glucose (UA) (Negative) Urine Ketones (Negative) Urine Bacteria (None) /hpf Hyaline Casts (0-2) /lpf Urine Mucus (None) /hpf 01/09/17 01/09/17 01/09/17 Range/Units 17:36 17:41 21:11 WBC (3.8-10.6) k/uL MCHC (31.0-37.0) g/dL Neutrophils # (1.3-7.7) k/uL INR (<1.2) VBG pH (7.31-7.41) VBG pCO2 (37-51) mmHg VBG HCO3 (24-28) mmol/L Chloride (98-107) mmol/L Carbon Dioxide (22-30) mmol/L BUN (7-17) mg/dL Creatinine (0.52-1.04) mg/dL Glucose (74-99) mg/dL POC Glucose (mg/dL) 183 H (75-99) mg/dL Plasma Lactic Acid Jose Guadalupe 2.2 H* (0.7-2.0) mmol/L Albumin (3.5-5.0) g/dL Urine Appearance Cloudy H (Clear) Urine Protein Trace H (Negative) Urine Glucose (UA) 1+ H (Negative) Urine Ketones 1+ H (Negative) Urine Bacteria Rare H (None) /hpf Hyaline Casts 4 H (0-2) /lpf Urine Mucus Rare H (None) /hpf 01/10/17 01/10/17 01/10/17 Range/Units 07:14 08:32 08:32 WBC 12.7 H (3.8-10.6) k/uL MCHC 30.0 L (31.0-37.0) g/dL Neutrophils # (1.3-7.7) k/uL INR 1.2 H (<1.2) VBG pH (7.31-7.41) VBG pCO2 (37-51) mmHg VBG HCO3 (24-28) mmol/L Chloride (98-107) mmol/L Carbon Dioxide (22-30) mmol/L BUN (7-17) mg/dL Creatinine (0.52-1.04) mg/dL Glucose (74-99) mg/dL POC Glucose (mg/dL) 127 H (75-99) mg/dL Plasma Lactic Acid Jose Guadalupe (0.7-2.0) mmol/L Albumin (3.5-5.0) g/dL Urine Appearance (Clear) Urine Protein (Negative) Urine Glucose (UA) (Negative) Urine Ketones (Negative) Urine Bacteria (None) /hpf Hyaline Casts (0-2) /lpf Urine Mucus (None) /hpf 01/10/17 01/10/17 Range/Units 08:32 12:23 WBC (3.8-10.6) k/uL MCHC (31.0-37.0) g/dL Neutrophils # (1.3-7.7) k/uL INR (<1.2) VBG pH (7.31-7.41) VBG pCO2 (37-51) mmHg VBG HCO3 (24-28) mmol/L Chloride 108 H (98-107) mmol/L Carbon Dioxide 18 L (22-30) mmol/L BUN 43 H (7-17) mg/dL Creatinine 1.29 H (0.52-1.04) mg/dL Glucose 139 H (74-99) mg/dL POC Glucose (mg/dL) 146 H (75-99) mg/dL Plasma Lactic Acid Jose Guadalupe (0.7-2.0) mmol/L Albumin (3.5-5.0) g/dL Urine Appearance (Clear) Urine Protein (Negative) Urine Glucose (UA) (Negative) Urine Ketones (Negative) Urine Bacteria (None) /hpf Hyaline Casts (0-2) /lpf Urine Mucus (None) /hpf Microbiology - Last 24 Hours (Table) 01/09/17 17:36 Gram Stain - Preliminary Abdomen Wound Culture - Preliminary 01/09/17 17:36 Urine Culture - Preliminary Urine,Catheterized Comments: EKG reviewed Chest x-ray: report reviewed MRI - head: report reviewed Assessment and Plan (1) History of breast cancer Narrative/Plan: Patient has a history of T2 N0 M0 triple negative breast cancer, surgically resected in March 2016, no adjuvant treatment. Patient was last seen in August by Dr. Wilson with no evidence of disease at that time, patient is due for follow -up mammogram next month. Tumor markers have been ordered. Patient will continue with her follow-up in regards to her breast cancer. Status: Chronic (2) Abnormal CT of brain Narrative/Plan: Progression of left temporal mass. Concern is is that this is possibly malignant-type lesion, it could represent a new primary or metastatic breast cancer, it could also represent an atypical type infection. Recommendation is for neurosurgeon evaluation and biopsy. Steroids will be ordered due to the discussion of edema surrounding the mass in the MRI report. Case was discussed with attending, and will be discussed with the patient about transfer to [facility] for neurosurgical evaluation and biopsy. Status: Acute (3) Anticoagulated on Coumadin Narrative/Plan: Currently patient is subtherapeutic on Coumadin. The origin of the brain mass is undetermined so, recommendation would be for holding of anticoagulation with utilization of mechanical prophylaxis for DVT until origin of mass is determined. Status: Acute (4) Facial paresthesia Narrative/Plan: This is been going on for about 3-4 months, likely secondary to the left temporal mass, steroids have been initiated. Status: Chronic (5) Weakness Narrative/Plan: Progressive over the last several weeks. Patient is being hydrated, she is being treated for cellulitis, she is going to be worked up for left temporal brain mass. Recommend PT/OT and possibly rehabilitation Status: Acute Plan: Patient did discuss having a biopsy with Dr. Antonino Klein [facility], request those records.
[2017-01-10 17:17] LABS: Glucose,Whole Blood 123 mg/dL (75-99)
[2017-01-10] MEDS: DEXAMETHASONE 4 MG TAB PO SCH ×2 (17:17→22:21)
[2017-01-10] MEDS ORDERED: WARFARIN 2.5 MG TAB PO SCH (18:00)
[2017-01-10 22:15] LABS: Glucose,Whole Blood 212 mg/dL (75-99)
--- NOTE | 2017-01-10 23:07 | P.CON ---
Consult Note - . Consult date: 01/10/17 Assessment/Plan:: This is a 71-year-old female with a previous medical history significant for chronic atrial fibrillation on Coumadin, hypertension and hypertensive cardiovascular disease, morbid obesity, obstructive sleep apnea and obesity hypoventilation syndrome, diabetes mellitus type 2, chronic obstructive pulmonary disease as a secondhand smoker as well [place], gastroesophageal reflux disease, osteoarthritis, diverticulitis, gout, breast cancer status post mastectomy in March 2016 not requiring chemotherapy or radiation therapy under the care of Dr. Wilson, diagnosis of a left-sided brain tumor that has not been biopsied. Patient states that she has had a number of problems since she had a mastectomy done in March. In May she had have a tooth pulled on the left side and has had ongoing problems with numbness to the left side of her face with difficulty chewing and requires her to chew on the right side. She has been biting her cheek on the left. Despite this, patient denies difficulty swallowing. She is also had some chronic sinusitis and "fluid in her ears" and gives history that she was on amoxicillin for 2 months around July of this year and did follow with Dr. Liu. She has also chronic wounds to the abdominal fold and midline area above the pubis that she has been treating with nystatin but states she is only using it once a day or less frequently as she is not able to get the powder in the area. She does state this rash has been going on for more than a year. Patient complains of chills and using 2 blankets at night but denies known fever. She has had generalized weakness that continues to worsen along with body aches in the shoulders back and hips. For the past 3 days she has been unable to get out of bed and she ended up having a large amount of diarrhea stool in the bed which is what causes family to bring her into [facility] emergency center for evaluation. Prior to this episode of diarrhea, patient did not have bowel movement for 3 days. She has not had any bowel movement since. Chest x-ray showed borderline cardiomegaly. Lactic acid was initially 2.2 and repeat was 1.6. GFR 54, albumin 2.9. Patient states that she has not had anything to eat for the past day and half and prior to that not eating and drinking very much. Urinalysis was cloudy and nitrate and leukoesterase were negative and bacteria rare. Patient denies having any dysuria. Farris catheter was placed in the emergency center due to wounds. Wound culture was also obtained that shows gram-negative bacilli, gram-positive cocci and gram-positive bacilli. Patient was given a dose of cefepime x1 and vancomycin in the emergency center and then admitted to the [facility] floor. She was also noted to have a lesion on the lower lip which her daughter states has been biopsied and found to be benign. Please see the consult note is dictated by nurse practitioner Mrs. Erin Elias. The case is discussed with the oncology team. They're trying to determine what has happened as far as potential lesion of her brain. This is of concern because of her history of breast carcinoma. The patient does have evidence of a cellulitis to her abdominal wall and pannus. Constantly antimicrobial therapy for cultures of staph strep and gram negatives as well as fungus are requested with vancomycin, Unasyn and Diflucan. Local wound care is with the Mycostatin powder and the inter dry. Cultures will help determine course of antimicrobial therapy if she leaves. The patient's lactic acidosis has resolved. Her diarrhea is improved. She ever has profound weakness. Will need physical therapy evaluations and possible rehab placement. I agree with evaluation, assessment and plan is dictated by nurse practitioner's is Erin Elias.
[2017-01-11 07:30] LABS: Glucose,Whole Blood 179 mg/dL (75-99)
[2017-01-11 07:36] VITALS: RESP 16
[2017-01-11] MEDS: INSULIN LISPRO (humaLOG) 300 UNIT/3 ML VIAL SQ SCH ×2 (08:29→13:03)
[2017-01-11] MEDS: AMPICILLIN-SULBACTAM 3 GM in SODIUM CHLORIDE 0.9% 100 ML IVPB SCH ×2 (08:30→15:51)
[2017-01-11] MEDS: DIGOXIN 250 MCG TAB PO SCH (08:31)
[2017-01-11] MEDS: FENOFIBRATE 160 MG TAB PO SCH (08:31)
[2017-01-11] MEDS: DEXAMETHASONE 4 MG TAB PO SCH ×2 (08:31→15:51)
[2017-01-11] MEDS: ALLOPURINOL 300 MG TAB PO SCH (08:31)
[2017-01-11] MEDS: MULTIVITAMINS, THERA 1 EACH TAB PO SCH (08:32)
[2017-01-11] MEDS: NYSTATIN 100,000 UNIT/GM POWD 15 GM TOPICAL SCH (08:32)
[2017-01-11] MEDS: FLUCONAZOLE 100 MG TAB PO SCH (08:32)
[2017-01-11] MEDS: SODIUM CHLORIDE 0.9% 1,000 ML IV SCH (08:34)
[2017-01-11 08:44] LABS: CH 29.4; CHCM 32.9; HCT 35.1 % (34.0-46.0); HDW 2.53; HGB 11.3 gm/dL (11.4-16.0); INR 1.2 (<1.2); MCH 28.9 pg (25.0-35.0); MCHC 32.2 g/dL (31.0-37.0); MCV 89.8 fL (80.0-100.0); Mean Platelet Volume 8.2; Prothrombin Time 12.1 sec (9.0-12.0); RBC 3.91 m/uL (3.80-5.40); RDW 14.3 % (11.5-15.5); WBC 11.8 k/uL (3.8-10.6)
[2017-01-11 08:53] LABS: Anion Gap 12 mmol/L; Blood Urea Nitrogen 35 mg/dL (7-17); Calcium 9.7 mg/dL (8.4-10.2); Carbon Dioxide 17 mmol/L (22-30); Chloride 110 mmol/L (98-107); Glucose 180 mg/dL (74-99); Non-African American GFR(MDRD) >60 (>60 ml/min/1.73 sqM); Potassium 4.4 mmol/L (3.5-5.1); Sodium 139 mmol/L (137-145)
[2017-01-11] MEDS ORDERED: LISINOPRIL 20 MG TAB PO SCH (09:00)
[2017-01-11 12:26] LABS: Glucose,Whole Blood 214 mg/dL (75-99)
[2017-01-11] MEDS ORDERED: VANCOMYCIN 2,000 MG in SODIUM CHLORIDE 0.9% 500 ML IVPB SCH (16:00)
[2017-01-11 16:57] VITALS: BP 111/59; PULSE 77; TEMP 97
--- NOTE | 2017-01-11 17:38 | P.DS ---
Providers Date of admission: 01/09/17 19:19 Expected date of discharge: 01/11/17 Attending physician: Alcides Kwong MD Consults: 01/09/17 19:20 Consult Physician Routine Consulting Provider: Hernando Wood Consult Reason/Comments: cellulitis of abdomen Do you want consulting provider notified?: Yes 01/10/17 13:50 Consult Physician Routine Consulting Provider: Sammy Wilson Consult Reason/Comments: breast ca, brain mass Do you want consulting provider notified?: Yes Primary care physician: [facility] Course: This is a 71-year-old female one of Dr. Solis with a previous medical history significant for chronic atrial fibrillation on Coumadin, hypertension and hypertensive cardiovascular disease, morbid obesity, obstructive sleep apnea and obesity hypoventilation syndrome, diabetes mellitus type 2, chronic obstructive pulmonary disease as a secondhand smoker as well [place], gastroesophageal reflux disease, osteoarthritis, diverticulitis, gout, breast cancer status post mastectomy in March 2016 not requiring chemotherapy or radiation therapy under the care of Dr. Wilson, diagnosis of a left-sided brain tumor that has not been biopsied. Patient states that she has had a number of problems since she had a mastectomy done in March. In May she had have a tooth pulled on the left side and has had ongoing problems with numbness to the left side of her face with difficulty chewing and requires her to chew on the right side. She has been biting her cheek on the left. Despite this, patient denies difficulty swallowing. She is also had some chronic sinusitis and "fluid in her ears" and gives history that she was on amoxicillin for 2 months around July of this year and did follow with Dr. Liu. She has also chronic wounds to the abdominal fold and midline area above the pubis that she has been treating with nystatin but states she is only using it once a day or less frequently as she is not able to get the powder in the area. She does state this rash has been going on for more than a year. Patient complains of chills and using 2 blankets at night but denies known fever. She has had generalized weakness that continues to worsen along with body aches in the shoulders back and hips. For the past 3 days she has been unable to get out of bed and she ended up having a large amount of diarrhea stool in the bed which is what causes family to bring her into [facility] emergency center for evaluation. Prior to this episode of diarrhea, patient did not have bowel movement for 3 days. She has not had any bowel movement since. Chest x-ray showed borderline cardiomegaly. Lactic acid was initially 2.2 and repeat was 1.6. GFR 54, albumin 2.9. Patient states that she has not had anything to eat for the past day and half and prior to that not eating and drinking very much. Urinalysis was cloudy and nitrate and leukoesterase were negative and bacteria rare. Patient denies having any dysuria. Farris catheter was placed in the emergency center due to wounds. Wound culture was also obtained that shows gram-negative bacilli, gram-positive cocci and gram-positive bacilli. Patient was given a dose of cefepime x1 and vancomycin in the emergency center and then admitted to the [facility] floor and consult was requested with Dr. Wood from infectious disease. She was also noted to have a lesion on the lower lip which her daughter states has been biopsied and found to be benign. CODE STATUS discussed with the patient and she wishes to be full code but does not want to be on life support for an extended period. Dr. Lee yesterday tried to transfer the patient to [facility] without any success subsequently as with the family about transferring the patient to [facility] they're in agreement based on the recommendation of Dr. Wilson from hematology oncology stated that the patient would need to have a brain biopsy because of the enhancement of the left anterior temporal lobe with significant edema in that area since we don't have any neurosurgery service in the hospital and the patient will be discharged I spoke with the neuro surgery on-call and to [facility] etc. the patient is a ground transfer and the family including the patient and the daughter were at the bedside and they' re in agreement for the transfer paper were signed EMS for more signs and the patient will be transferred in stable condition. Final diagnoses: 1. 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 4. Generalized weakness secondary to intracranial mass. 5. History of right-sided breast cancer status post mastectomy without radiation or chemotherapy . Since the patient was triple negative however she did have a BRCA gene positive. 6. Chronic atrial fibrillation. 7. Hypertension, hypertensive cardiovascular disease. 8. Diabetes mellitus type 2 insulin requiring. 9. Generalized debilitation. 10. Incontinence of stool secondary to generalized debility. 11. Obstructive sleep apnea with obesity hypoventilation syndrome. 12. Gout. 13. Chronic diastolic heart failure without exacerbation. Patient Condition at Discharge: Fair Plan - Discharge Summary New Discharge Prescriptions: No Action Verapamil HCl [Verelan] 360 mg PO DAILY@1600 Ramipril 10 mg PO DAILY Furosemide [Lasix] 40 mg PO DAILY PRN PRN Reason: Edema Multivitamins, Thera [Multivitamin (formulary)] 1 tab PO DAILY Warfarin [Coumadin] 2.5 mg PO HS Digoxin 250 mcg PO DAILY Albuterol Nebulized [Ventolin Nebulized] 2.5 mg INHALATION RT-BID PRN PRN Reason: Shortness Of Breath Amoxicillin 875 mg PO BID INSULIN LISPRO (HumaLOG) [HumaLOG] See Protocol SQ AC-TID Insulin Glargine [Lantus] 100 units SQ QAM Fenofibrate Nanocrystallized [Fenofibrate] 145 mg PO DAILY Allopurinol [Zyloprim] 300 mg PO DAILY Discharge Medication List Furosemide [Lasix] 40 mg PO DAILY PRN 09/06/13 [History] Ramipril 10 mg PO DAILY 09/06/13 [History] Verapamil HCl [Verelan] 360 mg PO DAILY@1600 09/06/13 [History] Multivitamins, Thera [Multivitamin (formulary)] 1 tab PO DAILY 05/02/14 [History ] Warfarin [Coumadin] 2.5 mg PO HS 03/26/16 [History] Digoxin 250 mcg PO DAILY 04/02/16 [History] Albuterol Nebulized [Ventolin Nebulized] 2.5 mg INHALATION RT-BID PRN 08/12/16 [ History] Allopurinol [Zyloprim] 300 mg PO DAILY 01/09/17 [History] Amoxicillin 875 mg PO BID 01/09/17 [History] Fenofibrate Nanocrystallized [Fenofibrate] 145 mg PO DAILY 01/09/17 [History] INSULIN LISPRO (HumaLOG) [HumaLOG] See Protocol SQ AC-TID 01/09/17 [History] Insulin Glargine [Lantus] 100 units SQ QAM 01/09/17 [History] Follow up Appointment(s)/Referral(s): Will,Seth, DO [Primary Care Provider] - 1-2 days
--- NOTE | 2017-01-12 01:10 | P.PN ---
Subjective Progress Note Date: 01/11/17 Principal diagnosis: Weakness This is a 71-year-old female with a previous medical history significant for chronic atrial fibrillation on Coumadin, hypertension and hypertensive cardiovascular disease, morbid obesity, obstructive sleep apnea and obesity hypoventilation syndrome, diabetes mellitus type 2, chronic obstructive pulmonary disease as a secondhand smoker as well as exposure [place], gastroesophageal reflux disease, osteoarthritis, diverticulitis, gout, breast cancer status post mastectomy in March 2016 not requiring chemotherapy or radiation therapy under the care of Dr. Wilson, diagnosis of a left-sided brain tumor that has not been biopsied. Patient states that she has had a number of problems since she had a mastectomy done in March. In May she had have a tooth pulled on the left side and has had ongoing problems with numbness to the left side of her face with difficulty chewing and requires her to chew on the right side. She has been biting her cheek on the left. Despite this, patient denies difficulty swallowing. She is also had some chronic sinusitis and "fluid in her ears" and gives history that she was on amoxicillin for 2 months around July of this year and did follow with Dr. Liu. She has also chronic wounds to the abdominal fold and midline area above the pubis that she has been treating with nystatin but states she is only using it once a day or less frequently as she is not able to get the powder in the area. She does state this rash has been going on for more than a year. Patient complains of chills and using 2 blankets at night but denies known fever. She has had generalized weakness that continues to worsen along with body aches in the shoulders back and hips. For the past 3 days she has been unable to get out of bed and she ended up having a large amount of diarrhea stool in the bed which is what causes family to bring her into [facility] emergency center for evaluation. Prior to this episode of diarrhea, patient did not have bowel movement for 3 days. She has not had any bowel movement since. Chest x-ray showed borderline cardiomegaly. Lactic acid was initially 2.2 and repeat was 1.6. GFR 54, albumin 2.9. Patient states that she has not had anything to eat for the past day and half and prior to that not eating and drinking very much. Urinalysis was cloudy and nitrate and leukoesterase were negative and bacteria rare. Patient denies having any dysuria. Farris catheter was placed in the emergency center due to wounds. Wound culture was also obtained that shows gram-negative bacilli, gram-positive cocci and gram-positive bacilli. Patient was given a dose of cefepime x1 and vancomycin in the emergency center and then admitted to the [facility] floor. She was also noted to have a lesion on the lower lip which her daughter states has been biopsied and found to be benign. The patient has been seen by oncology. They provided further information. She' ll be transferred to [facility]. Objective - Vital Signs Vital signs: Vital Signs Temp 97.0 F L 01/11/17 15:00 Pulse 77 01/11/17 15:00 Resp 16 01/11/17 15:00 BP 111/59 01/11/17 15:00 Pulse Ox 97 01/11/17 15:00 Intake & Output 01/11/17 01/11/17 01/12/17 06:59 18:59 06:59 Intake Total 700 420 Output Total 2100 800 Balance -1400 -380 Weight 110 kg Intake: Intake, IV Titration 300 Amount Ampicillin-Sulbactam 3 gm 200 In Sodium Chloride 0.9% 100 ml @ 100 mls/hr IVPB Q8HR MATTEO Rx#:[id number] Sodium Chloride 0.9% 1, 100 000 ml @ 50 mls/hr IV . Q20H MATTEO Rx#:[id number] Oral 700 120 Output: Urine 2100 800 Uretheral (Farris) 1000 800 Other: Voiding Method Indwelling Catheter # Bowel Movements 1 2 - Exam Gen: This is a morbidly obese 71-year-old female. Patient is in bed and appears to be in no acute distress. HEENT: Head is atraumatic, normocephalic. Pupils equal, round. Sclerae is anicteric. Conjunctiva pink. Oral mucous membranes are very dry. Lesions noted on the medical service on the left. Dentition is in poor order. NECK: Supple. No JVD. No lymphadenopathy. No thyromegaly. LUNGS: Clear to auscultation. No wheezes or rhonchi. No intercostal retractions. HEART: Irregular rate and rhythm. Systolic murmur. ABDOMEN: Soft. Bowel sounds are present. No masses. No tenderness. Patient has erythema and wound under the large abdominal apron. Foul order noted. Farris catheter in place. EXTREMITIES: No pedal edema. No wounds or erythema to the lower extremities. Dorsalis pedis +2 bilaterally. NEUROLOGICAL: Patient is awake, alert and oriented x3. Very anxious about her transfer continues to have the numbness to the left side of her face. - Labs CBC & Chem 7: 01/11/17 08:07 01/11/17 08:07 Labs: Abnormal Lab Results - Last 24 Hours (Table) 01/11/17 01/11/17 01/11/17 Range/Units 07:05 08:07 08:07 WBC 11.8 H (3.8-10.6) k/uL Hgb 11.3 L (11.4-16.0) gm/dL PT (9.0-12.0) sec INR (<1.2) Chloride 110 H (98-107) mmol/L Carbon Dioxide 17 L (22-30) mmol/L BUN 35 H (7-17) mg/dL Glucose 180 H (74-99) mg/dL POC Glucose (mg/dL) 179 H (75-99) mg/dL 01/11/17 01/11/17 Range/Units 08:07 11:51 WBC (3.8-10.6) k/uL Hgb (11.4-16.0) gm/dL PT 12.1 H (9.0-12.0) sec INR 1.2 H (<1.2) Chloride (98-107) mmol/L Carbon Dioxide (22-30) mmol/L BUN (7-17) mg/dL Glucose (74-99) mg/dL POC Glucose (mg/dL) 214 H (75-99) mg/dL Microbiology - Last 24 Hours (Table) 01/09/17 17:36 Gram Stain - Preliminary Abdomen Wound Culture - Preliminary Klebsiella pneumoniae Group D Enterococcus Laboratory Results WBC 11.8 k/uL (3.8-10.6) H 01/11/17 08:07 RBC 3.91 m/uL (3.80-5.40) 01/11/17 08:07 Hgb 11.3 gm/dL (11.4-16.0) L 01/11/17 08:07 Hct 35.1 % (34.0-46.0) 01/11/17 08:07 MCV 89.8 fL (80.0-100.0) 01/11/17 08:07 MCH 28.9 pg (25.0-35.0) 01/11/17 08:07 MCHC 32.2 g/dL (31.0-37.0) 01/11/17 08:07 RDW 14.3 % (11.5-15.5) 01/11/17 08:07 Plt Count 307 k/uL (150-450) 01/11/17 08:07 Neutrophils % 84 % 01/09/17 17:36 Lymphocytes % 9 % 01/09/17 17:36 Monocytes % 5 % 01/09/17 17:36 Eosinophils % 1 % 01/09/17 17:36 Basophils % 0 % 01/09/17 17:36 Neutrophils # 9.7 k/uL (1.3-7.7) H 01/09/17 17:36 Lymphocytes # 1.1 k/uL (1.0-4.8) 01/09/17 17:36 Monocytes # 0.6 k/uL (0-1.0) 01/09/17 17:36 Eosinophils # 0.1 k/uL (0-0.7) 01/09/17 17:36 Basophils # 0.0 k/uL (0-0.2) 01/09/17 17:36 PT 12.1 sec (9.0-12.0) H 01/11/17 08:07 INR 1.2 (<1.2) H 01/11/17 08:07 VBG pH 7.44 (7.31-7.41) H 01/09/17 17:36 VBG pCO2 31 mmHg (37-51) L 01/09/17 17:36 VBG HCO3 21 mmol/L (24-28) L 01/09/17 17:36 Sodium 139 mmol/L (137-145) 01/11/17 08:07 Potassium 4.4 mmol/L (3.5-5.1) 01/11/17 08:07 Chloride 110 mmol/L (98-107) H 01/11/17 08:07 Carbon Dioxide 17 mmol/L (22-30) L 01/11/17 08:07 Anion Gap 12 mmol/L 01/11/17 08:07 BUN 35 mg/dL (7-17) H 01/11/17 08:07 Creatinine 0.88 mg/dL (0.52-1.04) 01/11/17 08:07 Est GFR (MDRD) Af Amer >60 (>60 ml/min/1.73 sqM) 01/11/17 08:07 Est GFR (MDRD) Non-Af >60 (>60 ml/min/1.73 sqM) 01/11/17 08:07 Glucose 180 mg/dL (74-99) H 01/11/17 08:07 POC Glucose (mg/dL) 214 mg/dL (75-99) H 01/11/17 11:51 POC Glu Edgerman ID Mee Tyson 01/11/17 11:[address] Glu mg/dL 120 mg/dL 01/09/17 17:36 Hemoglobin A1c 5.8 % (4.2-6.1) 01/09/17 17:36 Lactic Ac Sepsis Rflx Y 01/09/17 18:23 Plasma Lactic Acid Jose Guadalupe 1.6 mmol/L (0.7-2.0) 01/09/17 22:09 Calcium 9.7 mg/dL (8.4-10.2) 01/11/17 08:07 Magnesium 1.6 mg/dL (1.6-2.3) 01/09/17 17:36 Total Bilirubin 0.8 mg/dL (0.2-1.3) 01/09/17 17:36 AST 29 U/L (14-36) 01/09/17 17:36 ALT 33 U/L (9-52) 01/09/17 17:36 Alkaline Phosphatase 78 U/L (38-126) 01/09/17 17:36 Total Creatine Kinase 101 U/L (30-135) 01/09/17 17:36 CK-MB (CK-2) 1.3 ng/mL (0.0-2.4) 01/09/17 17:36 CK-MB (CK-2) Rel Index 1.3 01/09/17 17:36 Troponin I <0.012 ng/mL (0.000-0.034) 01/09/17 17:36 NT-Pro-B Natriuret Pep 1700 pg/mL 01/09/17 17:36 Total Protein 6.4 g/dL (6.3-8.2) 01/09/17 17:36 Albumin 2.9 g/dL (3.5-5.0) L 01/09/17 17:36 Urine Color Yellow 01/09/17 17:36 Urine Appearance Cloudy (Clear) H 01/09/17 17:36 Urine pH 5.5 (5.0-8.0) 01/09/17 17:36 Ur Specific [place] 1.016 (1.001-1.035) 01/09/17 17:36 Urine Protein Trace (Negative) H 01/09/17 17:36 Urine Glucose (UA) 1+ (Negative) H 01/09/17 17:36 Urine Ketones 1+ (Negative) H 01/09/17 17:36 Urine Blood Negative (Negative) 01/09/17 17:36 Urine Nitrite Negative (Negative) 01/09/17 17:36 Urine Bilirubin Negative (Negative) 01/09/17 17:36 Urine Urobilinogen 6.0 mg/dL (<2.0) 01/09/17 17:36 Ur Leukocyte Esterase Negative (Negative) 01/09/17 17:36 Urine RBC 1 /hpf (0-5) 01/09/17 17:36 Urine WBC 1 /hpf (0-5) 01/09/17 17:36 Ur Squamous Epith Cells 3 /hpf (0-4) 01/09/17 17:36 Urine Bacteria Rare /hpf (None) H 01/09/17 17:36 Hyaline Casts 4 /lpf (0-2) H 01/09/17 17:36 Urine Mucus Rare /hpf (None) H 01/09/17 17:36 Microbiology 01/09/17 17:36 Abdomen Gram Stain - Preliminary 01/09/17 17:36 Abdomen Wound Culture - Preliminary Klebsiella pneumoniae Group D Enterococcus 01/09/17 17:36 Urine,Catheterized Urine Culture - Preliminary Assessment and Plan (1) Cellulitis Narrative/Plan: The case is discussed with the oncology team. They're trying to determine what has happened as far as potential lesion of her brain. This is of concern because of her history of breast carcinoma. The patient does have evidence of a cellulitis to her abdominal wall and pannus. Constantly antimicrobial therapy for cultures of staph strep and gram negatives as well as fungus are requested with vancomycin, Unasyn and Diflucan. Local wound care is with the Mycostatin powder and the inter dry. Cultures will help determine course of antimicrobial therapy if she leaves. The patient's lactic acidosis has resolved. Her diarrhea is improved. She ever has profound weakness. Will need physical therapy evaluations and possible rehab placement. Patient has now been seen by oncology. They have gone over the prior imaging studies. There is evidence of some worsening of the abnormality to the left frontal area. 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 She's been referred to [facility] neurosurgical unit for biopsy of this site. This is prudent because of her history of breast carcinoma. She likely will go to that facility today. She receiving antimicrobial therapy as noted. Cultures are pending. Status: Acute Plan: The case is discussed with the oncology team. They're trying to determine what has happened as far as potential lesion of her brain. This is of concern because of her history of breast carcinoma. The patient does have evidence of a cellulitis to her abdominal wall and pannus. Constantly antimicrobial therapy for cultures of staph strep and gram negatives as well as fungus are requested with vancomycin, Unasyn and Diflucan. Local wound care is with the Mycostatin powder and the inter dry. Cultures will help determine course of antimicrobial therapy if she leaves. The patient's lactic acidosis has resolved. Her diarrhea is improved. She ever has profound weakness. She has been evaluated by oncology. The outpatient imaging studies were reviewed.
[2017-01-13] MEDS ORDERED: VANCOMYCIN TROUGH DUE 1 EACH MISC MISCELLANE ONE (15:00)
== END 2017-01-11 17:43 | disposition short-term general hospital (02) | DRG 55 ==
LOC: EC 16:43 → 4MS4W 19:19
PROVIDERS: ADMIT Internal Medicine; ATTEND Internal Medicine
DX: D49.6 Neoplasm of unspecified behavior of brain (principal); E87.2 Acidosis; L03.311 Cellulitis of abdominal wall; E66.2 Morbid (severe) obesity with alveolar hypoventilation; I11.0 Hypertensive heart disease with heart failure; I50.32 Chronic diastolic (congestive) heart failure; I48.2 Chronic atrial fibrillation; B96.89 Other specified bacterial agents as the cause of diseases classified elsewhere; E11.9 Type 2 diabetes mellitus without complications; Z68.41 Body mass index [BMI] 40.0-44.9, adult; J32.9 Chronic sinusitis, unspecified; F32.9 Major depressive disorder, single episode, unspecified; R53.1 Weakness; J44.9 Chronic obstructive pulmonary disease, unspecified; F41.9 Anxiety disorder, unspecified; K21.9 Gastro-esophageal reflux disease without esophagitis; R15.9 Full incontinence of feces; R53.81 Other malaise; R20.2 Paresthesia of skin; R19.7 Diarrhea, unspecified; M10.9 Gout, unspecified; Z79.01 Long term (current) use of anticoagulants; Z79.4 Long term (current) use of insulin; Z82.49 Family history of ischemic heart disease and other diseases of the circulatory system; Z90.10 Acquired absence of unspecified breast and nipple; Z80.3 Family history of malignant neoplasm of breast; Z83.3 Family history of diabetes mellitus; Z85.3 Personal history of malignant neoplasm of breast; Z98.49 Cataract extraction status, unspecified eye; Z90.49 Acquired absence of other specified parts of digestive tract; Z88.6 Allergy status to analgesic agent; Z91.013 Allergy to seafood; Z88.8 Allergy status to other drugs, medicaments and biological substances; Z91.048 Other nonmedicinal substance allergy status
CPT/HCPCS: 36415; 71010; 74000; 80048; 80053; 81001; 82550; 82553; 82803; 83036; 83605; 83735; 83880; 84484; 85025; 85027; 85610; 86300; 87070; 87077; 87086; 87186; 87205; 93005; 96365; 96367; 99285